=== PATIENT | male | born 1940 | race Caucasian/White ===

== ENCOUNTER 2017-09-19 21:15 | Observation (INO) | payer MEDICARE ==
[2017-09-19] MEDS ORDERED: Sodium Chloride 0.9% 1,000 ML IV SCH (21:30)
[2017-09-19] MEDS ORDERED: Ondansetron 4 MG/2 ML SDV IVPUSH ONE (22:13)
[2017-09-19] MEDS ORDERED: Morphine 2 MG/ML Syringe IVPUSH ONE (22:13)
[2017-09-19] MEDS ORDERED: Bacitracin Oint 1 GM U/D Packet TOP ONE (22:14)
[2017-09-19] MEDS ORDERED: Sodium Chloride 0.9% 100 ML IV SCH (22:30)
[2017-09-19] MEDS ORDERED: Iopamidol 612 MG/ML 150 ML Bottle IV SCH (22:30)
--- NOTE | 2017-09-19 22:54 | EDM.PDOC ---
ED HPI GENERAL MEDICAL PROBLEM - General Chief Complaint: Lower Extremity Injury/Pain Stated Complaint: FELL Time Seen by Provider: 09/19/17 21:29 Source of Information: Reports: Patient, Family History Limitations: Reports: No Limitations - History of Present Illness INITIAL COMMENTS - FREE TEXT/NARRATIVE: fall; this is a 77 year old male present to ER via POV. with patient. They report Jeremie was in the garage fixing something on the ceiling, he was on a ladder, accidently bumped the garage breakdown mill operator, which pushed him off the ladder. He fell about 7 feet onto cement. Denies any LOC, doesn't remember how he landed, but had pain on left side of body and cut to the right forearm. Walked into the house, once he sat down, unable to stand with out severe pain. While in ER, he had labs; CBC, CMP, UA; no acute finding. Imaging; CT cervical spine, abdomen-pelvis, left hips. negative except for non displaced fracture of inferior and superior ramus of pelvis; see CT reports for full radiology report. Given IV fluids, Morphine, Zofran; pain controlled. Did consult with Orthopedics, report this is not a surgical case, requires non weight bearing, pain controll. will admit Observation for pain control. and Mrs. Castanon agree with plan of care. Onset: Sudden Duration: Hour(s): Location: Reports: Pelvis, Upper Extremity, Left, Upper Extremity, Right, Lower Extremity, Left, Other (left side of body injuried) Quality: Reports: Pressure, Sharp Severity: Severe Improves with: Reports: Immobilization Worsens with: Reports: Movement Context: Reports: Trauma Associated Symptoms: Reports: Weakness, Other (difficulty walking) Left Hip Pain Score (Numeric/FACES): 9 - Related Data Allergies Allergy/AdvReac Type Severity Reaction Status Date / Time indomethacin [From Indocin] Allergy Dizziness Verified 04/16/16 21:51 indomethacin sodium Allergy Dizziness Verified 04/16/16 21:51 [From Indocin] Home Meds: Home Meds Aspirin [Halfprin] 81 mg PO DAILY 09/19/17 [History] Acetaminophen/HYDROcodone [[place] 325-5 MG] 1 tab PO Q4H PRN #30 tablet 09/21/17 [Rx] Docusate Sodium/Sennosides [Senna Plus] 1 tab PO BID #60 tablet 09/21/17 [Rx] Past Medical History HEENT History: Reports: Cataract, Impaired Vision Musculoskeletal History: Reports: Other (See Below) Other Musculoskeletal History: 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 - Infectious Disease History Infectious Disease History: Reports: Chicken Pox, Measles, Mumps - Past Surgical History GI Surgical History: Reports: Cholecystectomy, Colonoscopy Musculoskeletal Surgical History: Reports: Arthroscopic Procedure, Joint Replacement, Other (See Below) Other Musculoskeletal Surgeries/Procedures:: R ankle replacement, R hip replacement Social & Family History - Family History Family Medical History: Noncontributory - Tobacco Use Smoking Status *Q: Never Smoker Second Hand Smoke Exposure: No - Caffeine Use Caffeine Use: Reports: Tea - Alcohol Use Days Per Week of Alcohol Use: 0 - Recreational Drug Use Recreational Drug Use: No - Living Situation & Occupation Living situation: Reports: Occupation: Retired Review of Systems - Review of Systems Review Of Systems: See Below Constitutional: Reports: Other (trauma) Eyes: Reports: No Symptoms Ears: Reports: No Symptoms Nose: Reports: No Symptoms Mouth/Throat: Reports: No Symptoms Respiratory: Reports: No Symptoms Cardiovascular: Reports: No Symptoms GI/Abdominal: Reports: No Symptoms Genitourinary: Reports: No Symptoms Musculoskeletal: Reports: Neck Pain, Shoulder Pain, Arm Pain, Back Pain, Muscle Pain, Muscle Stiffness, Other (hip and pelvis pain) Skin: Reports: Other (laceration and skin tear to right forearm) Neurological: Reports: No Symptoms ED EXAM, GENERAL - Physical Exam Exam: See Below Exam Limited By: No Limitations General Appearance: Alert, Moderate Distress (with movement) Eye Exam: Bilateral Eye: EOMI, Normal Inspection, PERRL Ears: Normal External Exam, Normal Canal, Hearing Grossly Normal, Normal TMs Ear Exam: Bilateral Ear: Auricle Normal, Canal Normal, TM normal Throat/Mouth: Normal Inspection, Normal Lips, Normal Teeth, Normal Gums, Normal Oropharynx, Normal Voice, No Airway Compromise Head: Other (abrasion to scalp minor. no active bleeding.) Neck: Normal Inspection, Supple, Full Range of Motion, Other (posterior neck tenderness) Respiratory/Chest: No Respiratory Distress, Lungs Clear, Normal Breath Sounds, No Accessory Muscle Use, Chest Non-Tender Cardiovascular: Normal Peripheral Pulses, Regular Rate, Rhythm, No Edema, No Gallop, No JVD, No Murmur, No Rub GI/Abdominal: Normal Bowel Sounds, Soft, No Organomegaly, No Distention, No Abnormal Bruit, No Mass, Guarding, Rebound, Tender (Male) Exam: No Hernia, Normal Inspection, Normal Prostate Rectal (Males) Exam: Deferred Back Exam: Muscle Spasm Extremities: Leg Pain, Limited Range of Motion (unable to do straight leg lift and internal and external rotation of left leg.) Neurological: Alert, Oriented, CN II-XII Intact, Normal Cognition Psychiatric: Normal Affect, Normal Mood Skin Exam: Warm, Dry, Other (laceration to right forearm, skin tear present) Lymphatic: No Adenopathy ED TRAUMA EXTREMITY PROCEDURES - Laceration/Wound Repair Right Mid-Anterior Arm Lac/Wound Length In cm: 2.5 Appearance: Subcutaneous, Linear Distal NVT: Neuro & Vascular Intact, No Tendon Injury Local Anesthesia - Lidocaine (Xylocaine): 0.5% Plain, 1% Plain Local Anesthetic Volume: 2cc Skin Prep: Chlorhexidine (Hibiciens), Saline Exploration/Debridement/Repair: Wound Explored, Minimal Debridement Closed With: Sutures Suture Size: 4-0 # of Sutures: 5 Suture Type: Prolene Drain Placement: No Sterile Dressing Applied: Nurse Tetanus Status Addressed: Other (last Tdap 5 years ago) Complications: No Course - Vital Signs Last Recorded V/S: Last Vital Signs Temp 36.8 C 09/21/17 09:45 Pulse 81 09/21/17 09:45 Resp 16 09/21/17 09:45 BP 103/57 L 09/21/17 09:45 Pulse Ox 91 L 09/21/17 09:45 - Orders/Labs/Meds Labs: Laboratory Tests 09/19/17 09/19/17 09/19/17 Range/Units 21:52 21:52 21:52 WBC 9.1 (4.5-11.0) K/uL RBC 3.79 L (4.30-5.90) M/uL Hgb 12.1 D (12.0-15.0) g/dL Hct 36.5 L (40.0-54.0) % MCV 96 (80-98) fL MCH 32 H (27-31) pg MCHC 33 (32-36) % Plt Count 155 (150-400) K/uL Neut % (Auto) 69 H (36-66) % Lymph % (Auto) 17 L (24-44) % [place] % (Auto) 10 H (2-6) % Eos % (Auto) 3 (2-4) % Baso % (Auto) 0 (0-1) % PT 11.3 (9.5-12.0) sec INR 1.05 (0.80-1.20) Sodium 144 (140-148) mmol/L Potassium 4.2 (3.6-5.2) mmol/L Chloride 107 (100-108) mmol/L Carbon Dioxide 28 (21-32) mmol/L Anion Gap 9.0 (5.0-14.0) mmol/L BUN 22 H (7-18) mg/dL Creatinine 1.4 H (0.8-1.3) mg/dL Est Cr Clr Drug Dosing 42.75 mL/min Estimated GFR (MDRD) 49 L (>60) Glucose 95 (74-106) mg/dL Calcium 8.5 (8.5-10.1) mg/dL Total Bilirubin 1.3 H (0.2-1.0) mg/dL AST 28 (15-37) U/L ALT 25 (12-78) U/L Alkaline Phosphatase 63 (46-116) U/L Total Protein 6.2 L (6.4-8.2) g/dL Albumin 3.4 (3.4-5.0) g/dL Globulin 2.8 (2.3-3.5) g/dL Albumin/Globulin Ratio 1.2 (1.2-2.2) Meds: Medications Discontinued Medications Generic Name Dose Route Start Last Admin Trade Name Freq PRN Reason Stop Dose Admin Acetaminophen 650 mg 09/20/17 02:01 Tylenol PO Q4H PRN Pain (Mild 1-3)/fever Hydrocodone Bitart/Acetaminophen 1 - 2 tab 09/20/17 16:26 09/21/17 02:47 [place] 325-5 Mg PO 2 tab Q4H PRN Administration Pain Albuterol 2.5 mg 09/20/17 02:01 Proventil Neb Soln NEB Q4H PRN Shortness Of Breath/wheezing Albuterol/Ipratropium 3 ml 09/20/17 02:01 Duoneb 3.0-0.5 Mg/3 Ml NEB QID PRN Shortness Of Breath/wheezing Bacitracin 1 dose 09/19/17 22:14 09/19/17 22:22 Bacitracin Oint 1 Gm TOP 09/19/17 22:15 1 dose ONETIME ONE Administration Bisacodyl 5 mg 09/20/17 02:01 Dulcolax PO DAILY PRN Constipation Docusate Sodium 100 mg 09/20/17 02:01 Colace PO BID PRN Constipation Hydromorphone HCl 0 mg 09/20/17 02:01 09/20/17 02:30 Dilaudid Feed Handler 15 Mg In Ns 30 Ml IV 15 mg ASDIRECTED PRN Administration Pain Protocol Sodium Chloride 1,000 mls @ 500 mls/hr 09/19/17 21:30 09/19/17 22:07 Normal Saline IV 500 mls/hr ASDIRECTED [place] Administration Sodium Chloride 100 mls @ 3 mls/sec 09/19/17 22:30 09/19/17 22:52 Normal Saline IV 3 mls/sec ASDIRECTED [place] Administration Sodium Chloride 1,000 mls @ 125 mls/hr 09/20/17 00:30 09/20/17 09:43 Normal Saline IV 125 mls/hr ASDIRECTED [place] Administration Iopamidol 136 ml 09/19/17 22:30 09/19/17 22:52 Isovue-300 (61%) IV 136 ml . DIRECTED [place] Administration Lidocaine HCl 5 ml 09/19/17 22:13 09/19/17 22:23 Xylocaine-Mpf 1% INJECT 09/19/17 22:14 5 ml ONETIME ONE Administration Lorazepam 1 mg 09/20/17 02:01 Ativan IV Q6H PRN Nausea/Vomiting Morphine Sulfate 2 mg 09/19/17 22:13 09/19/17 22:23 Morphine IVPUSH 09/19/17 22:14 2 mg ONETIME ONE Administration Naloxone HCl 0.4 mg 09/20/17 02:01 Narcan IVPUSH Q2M PRN Respiratory Distress Ondansetron HCl 4 mg 09/19/17 22:13 09/19/17 22:23 Zofran IVPUSH 09/19/17 22:14 4 mg ONETIME ONE Administration Ondansetron HCl 4 mg 09/20/17 02:01 Zofran Odt PO Q6H PRN Nausea able to take PO Pneumococcal Polyvalent Vaccine 0.5 ml 09/21/17 12:00 09/21/17 11:38 Pneumovax 23 IM 09/21/17 12:01 0.5 ml .ONCE ONE Administration Senna/Docusate Sodium 1 tab 09/20/17 21:00 09/21/17 10:01 Senna Plus PO 1 tab BID [place] Administration Zolpidem Tartrate 5 mg 09/20/17 02:01 Ambien PO BEDTIME PRN Sleep - Re-Assessments/Exams Free Text/Narrative Re-Assessment/Exam: 09/19/17 22:39 IV fluids Normal Saline 1 liter IV Morphine 2 mg IV Zofran 4 mg Imaging -CT scan cervical spine, abdomen-pelvis , left hip consult with Orthopedics. fracture noted, reviewed with and Mrs. Castanon, will admit for further care and treatment. Departure - Departure Time of Disposition: 02:20 Disposition: Admitted As Inpatient 66 Condition: Good Clinical Impression: Inferior pubic ramus fracture Qualifiers: Encounter type: initial encounter Fracture of superior ramus of left pubis Qualifiers: Encounter type: initial encounter Fracture type: closed Qualified Code(s): S32.512A - Fracture of superior rim of left pubis, initial encounter for closed fracture Laceration of right forearm without complication Qualifiers: Encounter type: initial encounter Qualified Code(s): S51.811A - Laceration without foreign body of right forearm, initial encounter - Discharge Information
[2017-09-20] MEDS: Sodium Chloride 0.9% 1,000 ML IV SCH ×2 (00:30→09:43)
[2017-09-20] MEDS ORDERED: Zolpidem 5 MG Tab PO PRN (02:01)
[2017-09-20] MEDS ORDERED: Docusate Sodium 100 MG Cap PO PRN (02:01)
[2017-09-20] MEDS ORDERED: Bisacodyl 5 MG Tab PO PRN (02:01)
[2017-09-20] MEDS ORDERED: LORazepam 2 MG/ML MDV IV PRN (02:01)
[2017-09-20] MEDS ORDERED: Albuterol 0.083% 2.5 MG/3 ML Neb Soln NEB PRN (02:01)
[2017-09-20] MEDS ORDERED: HYDROmorphone/Normal Saline 15 MG/30 ML PCA IV PRN (02:01)
[2017-09-20] MEDS ORDERED: Acetaminophen 325 MG Tab PO PRN (02:01)
[2017-09-20] MEDS ORDERED: Ondansetron 4 MG Tab.DIS PO PRN (02:01)
[2017-09-20] MEDS ORDERED: Albuterol/Ipratropium 3.0-0.5 MG/3 ML Neb Soln NEB PRN (02:01)
[2017-09-20] MEDS ORDERED: Naloxone 0.4 MG/ML SDV IVPUSH PRN (02:01)
--- NOTE | 2017-09-20 02:15 | PCM.HP ---
H&P History of Present Illness - General Date of Service: 09/19/17 Admit Problem/Dx: Admission Diagnosis/Problem Admission Diagnosis/Problem Fracture of left inferior pubic ramus Source of Information: Patient, Family () History Limitations: Reports: No Limitations - History of Present Illness Initial Comments - Free Text/Narative: fall; this is a 77 year old male present to ER via POV. with patient. They report Jeremie was in the garage fixing something on the ceiling, he was on a ladder, accidently bumped the garage door clamper, which pushed him off the ladder. He fell about 7 feet onto cement. Denies any LOC, doesn't remember how he landed, but had pain on left side of body and cut to the right forearm. Walked into the house, once he sat down, unable to stand with out severe pain. While in ER, he had labs; CBC, CMP, UA; no acute finding. Imaging; CT cervical spine, abdomen-pelvis, left hips. negative except for non displaced fracture of inferior and superior ramus of pelvis; see CT reports for full radiology report. Given IV fluids, Morphine, Zofran; pain controlled. Did consult with Orthopedics, report this is not a surgical case, requires non weight bearing, pain controll. will admit Observation for pain control. and Mrs. Castanon agree with plan of care. Onset of Symptoms: Reports: Sudden Symptom Onset Date: 09/19/17 Symptom Onset Time: 16:00 Duration of Symptoms: Reports: Constant Location: Reports: Generalized, Radiates to (left groin and hip) Quality: Reports: Sharp Severity: Severe Improves with: Reports: Immobilization Worsens with: Reports: Movement Context: Reports: Other (fall at home) Associated Symptoms: Reports: No Other Symptoms Left Hip Pain Score (Numeric/FACES): 9 - Related Data Allergies/Adverse Reactions: Allergies Allergy/AdvReac Type Severity Reaction Status Date / Time indomethacin [From Indocin] Allergy Dizziness Verified 04/16/16 21:51 indomethacin sodium Allergy Dizziness Verified 04/16/16 21:51 [From Indocin] Home Medications: Home Meds Aspirin [Halfprin] 81 mg PO DAILY 09/19/17 [History] Past Medical History HEENT History: Reports: Cataract, Impaired Vision Musculoskeletal History: Reports: Other (See Below) Other Musculoskeletal History: 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 - Infectious Disease History Infectious Disease History: Reports: Chicken Pox, Measles, Mumps - Past Surgical History GI Surgical History: Reports: Cholecystectomy, Colonoscopy Musculoskeletal Surgical History: Reports: Arthroscopic Procedure, Joint Replacement, Other (See Below) Other Musculoskeletal Surgeries/Procedures:: R ankle replacement, R hip replacement Social & Family History - Family History Family Medical History: Noncontributory - Tobacco Use Smoking Status *Q: Never Smoker Second Hand Smoke Exposure: No - Caffeine Use Caffeine Use: Reports: Tea - Alcohol Use Days Per Week of Alcohol Use: 0 - Recreational Drug Use Recreational Drug Use: No - Living Situation & Occupation Living situation: Reports: H&P Review of Systems - Review of Systems: Review Of Systems: See Below General: Reports: Other (pain with movement.) HEENT: Reports: Other (left neck pain) Pulmonary: Reports: No Symptoms Cardiovascular: Reports: No Symptoms Gastrointestinal: Reports: No Symptoms Genitourinary: Reports: No Symptoms Musculoskeletal: Reports: Back Pain Skin: Reports: Other (laceration and skin tear to the right forearm.) Psychiatric: Reports: No Symptoms Neurological: Reports: No Symptoms Hematologic/Lymphatic: Reports: No Symptoms Immunologic: Reports: No Symptoms Exam - Exam Exam: See Below - Vital Signs Vital Signs: Last Vital Signs Temp 37 C 09/20/17 01:36 Pulse 88 09/20/17 01:36 Resp 16 09/20/17 01:36 BP 101/55 L 09/20/17 01:36 Pulse Ox 94 L 09/20/17 01:36 Weight: 90.718 kg - Exam General: Alert, Oriented, 4 HEENT: PERRLA, Hearing Intact, Mucosa Moist & [place], Nares Patent, Normal Nasal Septum, Posterior Pharynx Clear, Conjunctiva Clear, EOMI, EACs Clear, TMs Clear Neck: Supple Lungs: Clear to Auscultation, Normal Respiratory Effort Cardiovascular: Regular Rate, Regular Rhythm GI/Abdominal Exam: Normal Bowel Sounds, Soft, Non-Tender, No Organomegaly, No Distention, No Abnormal Bruit, No Mass, Pelvis Stable, Other (pain epigastric region of abdomen.) Back Exam: Normal Inspection Extremities: Normal Inspection, Normal Range of Motion, Non-Tender, No Pedal Edema, Normal Capillary Refill Skin: Wound Neurological: Reflexes Equal Bilateral, Normal Speech, Sensation Intact Neuro Extensive - Mental Status: Alert, Oriented x3, Normal Mood/Affect, Normal Cognition Neuro Extensive - Motor, Sensory, Reflexes: Other (left leg increased pain and limited range of motion to left legs.) Psychiatric: Alert, Normal Affect, Normal Mood - Patient Data Result Diagrams: 09/19/17 21:52 09/19/17 21:52 *Q Meaningful Use (ADM) - VTE *Q VTE Criteria *Q: - Stroke *Q Stroke Criteria *Q: - AMI *Q AMI Criteria *Q: - Problem List (1) Fracture of superior ramus of left pubis SNOMED Code(s): 278418498 ICD Code: S32.512A - FRACTURE OF SUPERIOR RIM OF LEFT PUBIS, INIT FOR CLOS FX Status: Acute Priority: High Current Visit: Yes Qualifiers: Encounter type: initial encounter Fracture type: closed Qualified Code(s) : S32.512A - Fracture of superior rim of left pubis, initial encounter for closed fracture (2) Inferior pubic ramus fracture SNOMED Code(s): 628075829 ICD Code: S32.599A - OTH FRACTURE OF UNSP PUBIS, INIT ENCNTR FOR CLOSED FRACTURE Status: Acute Priority: High Current Visit: Yes Qualifiers: Encounter type: initial encounter (3) Laceration of right forearm without complication SNOMED Code(s): 497395086 ICD Code: S51.811A - LACERATION W/O FOREIGN BODY OF RIGHT FOREARM, INIT ENCNTR Status: Acute Priority: High Current Visit: Yes Qualifiers: Encounter type: initial encounter Qualified Code(s): S51.811A - Laceration without foreign body of right forearm, initial encounter Problem List Initiated/Reviewed/Updated: Yes Orders Last 24hrs: Active Orders 24 hr Category Date Time Status Patient Status [ADT] Routine ADT 09/20/17 02:01 Active Communication Order [RC] STAT Care 09/20/17 02:01 Active Intake and Output [RC] QSHIFT Care 09/20/17 02:01 Active Notify Provider Vital Signs [RC] ASDIRECTED Care 09/20/17 02:01 Active Notify Provider [RC] PRN Care 09/20/17 02:01 Active Oxygen Therapy [RC] PRN Care 09/20/17 02:01 Active BANK MANAGER Record [RC] PER UNIT ROUTINE Care 09/20/17 02:01 Active Pulse Oximetry [RC] CONTINUOUS Care 09/20/17 02:01 Active Pulse Oximetry [RC] CONTINUOUS Care 09/20/17 02:01 Active RT Aerosol Therapy [RC] ASDIRECTED Care 09/20/17 02:01 Active Up With Assistance [RC] ASDIRECTED Care 09/20/17 02:01 Active VTE/DVT Education [RC] Per Unit Routine Care 09/20/17 02:01 Active Vital Signs [RC] Q4H Care 09/20/17 02:01 Active OT Evaluation and Treatment [CONS] Routine Cons 09/20/17 02:01 Active PT Evaluation and Treatment [CONS] Routine Cons 09/20/17 02:01 Active Regular Diet [DIET] Diet 09/20/17 Breakfast Active BASIC METABOLIC PANEL,BMP [CHEM] AM Lab 09/20/17 05:11 Ordered CBC WITH AUTO DIFF [HEME] AM Lab 09/20/17 05:11 Ordered Acetaminophen [Tylenol] Med 09/20/17 02:01 Ordered 650 mg PO Q4H PRN Albuterol [Proventil Neb Soln] Med 09/20/17 02:01 Ordered 2.5 mg NEB Q4H PRN Albuterol/Ipratropium [DuoNeb 3.0-0.5 MG/3 ML] Med 09/20/17 02:01 Ordered 3 ml NEB QID PRN Bisacodyl [Dulcolax] Med 09/20/17 02:01 Ordered 5 mg PO DAILY PRN Docusate Sodium [Colace] Med 09/20/17 02:01 Ordered 100 mg PO BID PRN HYDROmorphone/Normal Saline [Dilaudid BANK MANAGER 15 MG in NS Med 09/20/17 02:01 Ordered 30 ML] See Protocol IV ASDIRECTED PRN LORazepam [Ativan] Med 09/20/17 02:01 Ordered 1 mg IV Q6H PRN Naloxone [Narcan] Med 09/20/17 02:01 Ordered 0.4 mg IVPUSH Q2M PRN Ondansetron [Zofran ODT] Med 09/20/17 02:01 Ordered 4 mg PO Q6H PRN Zolpidem [Ambien] Med 09/20/17 02:01 Ordered 5 mg PO BEDTIME PRN Medication Discontinuation Instructions [OM.PC] Stat Oth 09/20/17 02:01 Ordered Sequential Compression Device [OM.PC] Per Unit Routine Oth 09/20/17 02:01 Ordered Resuscitation Status Routine Resus Stat 09/20/17 00:43 Ordered Medication Orders Acetaminophen (Tylenol) 650 mg PO Q4H PRN PRN Reason: Pain (Mild 1-3)/fever Albuterol (Proventil Neb Soln) 2.5 mg NEB Q4H PRN PRN Reason: Shortness Of Breath/wheezing Albuterol/Ipratropium (Duoneb 3.0-0.5 Mg/3 Ml) 3 ml NEB QID PRN PRN Reason: Shortness Of Breath/wheezing Bisacodyl (Dulcolax) 5 mg PO DAILY PRN PRN Reason: Constipation Docusate Sodium (Colace) 100 mg PO BID PRN PRN Reason: Constipation Hydromorphone HCl (Dilaudid Panel Flow Machine Operator 15 Mg In Ns 30 Ml) 0 mg IV ASDIRECTED PRN; Protocol PRN Reason: Pain Sodium Chloride (Normal Saline) 1,000 mls @ 125 mls/hr IV ASDIRECTED [place] Last Admin: 09/20/17 00:30 Dose: 125 mls/hr Lorazepam (Ativan) 1 mg IV Q6H PRN PRN Reason: Nausea/Vomiting Naloxone HCl (Narcan) 0.4 mg IVPUSH Q2M PRN PRN Reason: Respiratory Distress Ondansetron HCl (Zofran Odt) 4 mg PO Q6H PRN PRN Reason: Nausea able to take PO Zolpidem Tartrate (Ambien) 5 mg PO BEDTIME PRN PRN Reason: Sleep Assessment/Plan Comment:: ASSESSMENT AND PLAN fall; this is a 77 year old male present to ER via POV. with patient. They report Jeremie was in the garage fixing something on the ceiling, he was on a ladder, accidentally bumped the garage door clamper, garage door opened which pushed him off the ladder. He fell about 7 feet onto cement. Denies any LOC, doesn't remember how he landed, but had pain on left side of body and cut to the right forearm. Walked into the house, once he sat down, unable to stand with out severe pain. While in ER, he had labs; CBC, CMP, UA; no acute finding. Imaging; xray of left shoulder, left knee; negative for acute bony injury. CT cervical spine, abdomen- pelvis, left hip. negative except for non displaced fracture of inferior and superior ramus of pelvis; see CT reports for full radiology report. Given IV fluids, Morphine, Zofran; pain controlled. Did consult with Orthopedics, report this is not a surgical case, requires non weight bearing, pain controll. will admit Observation for pain control. and Mrs. Castanon agree with admission to hospital. Plan: Pelvis Fracture; non displaced left inferior pubic rfamus fractue and a possible very subtel non-diplace fracture of the left superior pubic ramus -Admit to [address] [place] [address] Observation for further monitoring -BANK MANAGER Dilaudid. see protocol -IV fluids for rehydration NS at 125 mL per hour -Advise to notify nurses of any chest pain or other symptoms -And a.m. labs: CBC, BMP laceration repair Right forearm -bandage change daily -apply bactracin ointment to laceration and skin tear of right forearm -sutures out in 7 to 10 days -monitor for signs of infection. Maintenance issues -Orders home meds: non noted -Nutrition: Regular diet -[place] catheter not indicated at this time -DVT: SCD -GI Prophylaxis; Protonix 40mg daily -referral to PT and OT for strengthen and discharge planning. CODE STATUS: Full Admission status: Admit to Observation -I expect this patient to stay less than 24 hours, not to exceed 96 hours for evaluation and management of this problem. Disposition; home Primary care provider: Dr. Ascencio Hospitalist:
--- NOTE | 2017-09-20 08:25 | CR ---
Knee 3V Lt HISTORY: pain lt knee. fall 7ft to cement floor. FINDINGS: There is prominent narrowing of the medial compartment left knee. Meniscal calcification is noted. Moderate to severe narrowing left knee is also seen along with meniscal calcification and mod erate medial and lateral aspects. Posterior osteophytes are noted. There are also prominent degenerat danisha changes patellofemoral joint with superior and inferior patellar osteophytes. Bony structures brent ear mildly osteopenic. Sclerotic changes consistent with old healed bone infarct are noted in the dis daniel abscess left femur. 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 Generalized osteope jose. No acute fracture can be identified. 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
--- NOTE | 2017-09-20 08:26 | CR ---
Shoulder Comp Lt HISTORY: fall 7ft cement floor. pain anterior shoulder left FINDINGS: No acute fracture or dislocation is identified. Bony architecture and joint spaces are preserved. T here are very mild hypertrophic changes at the AC joint. Soft tissues are unremarkable. IMPRESSION: Mild degenerative changes. No acute left shoulder abnormality identified.
[2017-09-20] MEDS: Acetaminophen/HYDROcodone 325-5 MG Tab PO PRN (17:07)
--- NOTE | 2017-09-20 18:18 | PCM.PN ---
- General Info Date of Service: 09/20/17 Subjective Update: This patient is a 77-year-old gentleman who fell last night and was brought into the emergency department for evaluation. CT scan of the pelvis documents a left inferior pubic rami fracture and possible left superior rami fracture. He reports that his pain control is been adequate. Vital signs have been stable and he has remained afebrile Functional Status: Reports: Pain Controlled, Tolerating Diet - Review of Systems General: Denies: Fever, Weakness, Chills Pulmonary: Reports: No Symptoms Cardiovascular: Reports: No Symptoms Gastrointestinal: Reports: No Symptoms Musculoskeletal: Reports: Other (Pelvic and left hip pain) - Patient Data Vitals - Most Recent: Last Vital Signs Temp 99.7 F 09/20/17 15:50 Pulse 70 09/20/17 15:50 Resp 17 09/20/17 15:50 BP 100/49 L 09/20/17 15:50 Pulse Ox 95 09/20/17 15:50 Weight - Most Recent: 209 lb 14.081 oz I&O - Last 24 Hours: Intake & Output 09/20/17 09/20/17 09/20/17 06:59 14:59 22:59 Intake Total 586 840 Output Total 400 Balance 586 440 Lab Results Last 24 Hours: Laboratory Results - last 24 hr 09/20/17 09/20/17 Range/Units 05:15 05:15 WBC 8.1 (4.5-11.0) K/uL RBC 3.56 L (4.30-5.90) M/uL Hgb 11.2 L (12.0-15.0) g/dL Hct 34.7 L (40.0-54.0) % MCV 98 (80-98) fL MCH 32 H (27-31) pg MCHC 32 (32-36) % Plt Count 146 L (150-400) K/uL Neut % (Auto) 69 H (36-66) % Lymph % (Auto) 18 L (24-44) % [place] % (Auto) 8 H (2-6) % Eos % (Auto) 5 H (2-4) % Baso % (Auto) 0 (0-1) % Sodium 143 (140-148) mmol/L Potassium 4.1 (3.6-5.2) mmol/L Chloride 109 H (100-108) mmol/L Carbon Dioxide 27 (21-32) mmol/L Anion Gap 11.1 (5.0-14.0) mmol/L BUN 19 H (7-18) mg/dL Creatinine 1.1 (0.8-1.3) mg/dL Est Cr Clr Drug Dosing 54.41 mL/min Estimated GFR (MDRD) > 60 (>60) Glucose 99 (74-106) mg/dL Calcium 8.0 L (8.5-10.1) mg/dL Med Orders - Current: Current Medications Acetaminophen (Tylenol) 650 mg PO Q4H PRN PRN Reason: Pain (Mild 1-3)/fever Hydrocodone Bitart/Acetaminophen ([place] 325-5 Mg) 1 - 2 tab PO Q4H PRN PRN Reason: Pain Last Admin: 09/20/17 17:07 Dose: 2 tab Albuterol (Proventil Neb Soln) 2.5 mg NEB Q4H PRN PRN Reason: Shortness Of Breath/wheezing Albuterol/Ipratropium (Duoneb 3.0-0.5 Mg/3 Ml) 3 ml NEB QID PRN PRN Reason: Shortness Of Breath/wheezing Bisacodyl (Dulcolax) 5 mg PO DAILY PRN PRN Reason: Constipation Docusate Sodium (Colace) 100 mg PO BID PRN PRN Reason: Constipation Lorazepam (Ativan) 1 mg IV Q6H PRN PRN Reason: Nausea/Vomiting Naloxone HCl (Narcan) 0.4 mg IVPUSH Q2M PRN PRN Reason: Respiratory Distress Ondansetron HCl (Zofran Odt) 4 mg PO Q6H PRN PRN Reason: Nausea able to take PO Senna/Docusate Sodium (Senna Plus) 1 tab PO BID [place] Zolpidem Tartrate (Ambien) 5 mg PO BEDTIME PRN PRN Reason: Sleep Discontinued Medications Bacitracin (Bacitracin Oint 1 Gm) 1 dose TOP ONETIME ONE Stop: 09/19/17 22:15 Last Admin: 09/19/17 22:22 Dose: 1 dose Hydromorphone HCl (Dilaudid Social Services Technician 15 Mg In Ns 30 Ml) 0 mg IV ASDIRECTED PRN; Protocol PRN Reason: Pain Last Admin: 09/20/17 02:30 Dose: 15 mg Sodium Chloride (Normal Saline) 1,000 mls @ 500 mls/hr IV ASDIRECTED [facility] Last Admin: 09/19/17 22:07 Dose: 500 mls/hr Sodium Chloride (Normal Saline) 100 mls @ 3 mls/sec IV ASDIRECTED [facility] Last Admin: 09/19/17 22:52 Dose: 3 mls/sec Sodium Chloride (Normal Saline) 1,000 mls @ 125 mls/hr IV ASDIRECTED [facility] Last Admin: 09/20/17 09:43 Dose: 125 mls/hr Iopamidol (Isovue-300 (61%)) 136 ml IV . DIRECTED [facility] Last Admin: 09/19/17 22:52 Dose: 136 ml Lidocaine HCl (Xylocaine-Mpf 1%) 5 ml INJECT ONETIME ONE Stop: 09/19/17 22:14 Last Admin: 09/19/17 22:23 Dose: 5 ml Morphine Sulfate (Morphine) 2 mg IVPUSH ONETIME ONE Stop: 09/19/17 22:14 Last Admin: 09/19/17 22:23 Dose: 2 mg Ondansetron HCl (Zofran) 4 mg IVPUSH ONETIME ONE Stop: 09/19/17 22:14 Last Admin: 09/19/17 22:23 Dose: 4 mg - Exam Quality Assessment: DVT Prophylaxis General: Alert, Oriented, Cooperative, Mild Distress Lungs: Clear to Auscultation, Normal Respiratory Effort Cardiovascular: Regular Rate, Regular Rhythm, No Murmurs GI/Abdominal Exam: Normal Bowel Sounds, Soft, Non-Tender, No Organomegaly, No Distention Extremities: Normal Capillary Refill, Pedal Edema Skin: Warm, Dry, Intact - Problem List Review Problem List Initiated/Reviewed/Updated: Yes - My Orders Last 24 Hours: My Active Orders 09/20/17 16:23 Convert IV to Saline Lock [OM.PC] Routine 09/20/17 16:26 Acetaminophen/HYDROcodone [[place] 325-5 MG] 1 - 2 tab PO Q4H PRN 09/20/17 21:00 Docusate Sodium/Sennosides [Senna Plus] 1 tab PO BID 09/21/17 09:00 Consult to Physician [CONS] Routine - Plan Plan:: ASSESSMENT AND PLAN Pelvis Fracture; non displaced left inferior pubic ramus fractue and a possible non-diplace fracture of the left superior pubic ramus -Discontinue ENVIRONMENTAL EDUCATOR -Saline lock IV -Continue physical therapy -Hydrocodone with Tylenol as needed for pain -Orthopedic consult in a.m. for ongoing recommendations concerning management and follow-up Laceration repair Right forearm -bandage change daily -apply bactracin ointment to laceration and skin tear of right forearm -sutures out in 7 to 10 days -monitor for signs of infection. Maintenance issues -Orders home meds: non noted -Nutrition: Regular diet -[place] catheter not indicated at this time -DVT: SCD -GI Prophylaxis; Protonix 40mg daily -referral to PT and OT for strengthen and discharge planning. CODE STATUS: Full Admission status: Admit to Observation -I expect this patient to stay less than 24 hours, not to exceed 96 hours for evaluation and management of this problem. Disposition; anticipate discharge to home in a.m. with home physical therapy and occupational therapy Primary care provider: Dr. Ascencio Hospitalist:
[2017-09-21] MEDS: Acetaminophen/HYDROcodone 325-5 MG Tab PO PRN (02:47)
--- NOTE | 2017-09-21 09:44 | PCM.CONS ---
H&P History of Present Illness - General Date of Service: 09/21/17 Admit Problem/Dx: Admission Diagnosis/Problem Admission Diagnosis/Problem Fracture of left inferior pubic ramus Patient stated that he had a recent fall that caused him to come to the ER where he was evaluated to have a left inferior pubic ramus fracture. He notes that he has not had any other issues at this time. 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 - Infectious Disease History Infectious Disease History: Reports: Chicken Pox, Measles, Mumps - Past Surgical History GI Surgical History: Reports: Cholecystectomy, Colonoscopy Musculoskeletal Surgical History: Reports: Arthroscopic Procedure, Joint Replacement, Other (See Below) Other Musculoskeletal Surgeries/Procedures:: R ankle replacement, R hip replacement Social & Family History - Family History Family Medical History: Noncontributory - Tobacco Use Smoking Status *Q: Never Smoker Second Hand Smoke Exposure: No - Caffeine Use Caffeine Use: Reports: Tea - Alcohol Use Days Per Week of Alcohol Use: 0 - Recreational Drug Use Recreational Drug Use: No - Living Situation & Occupation Living situation: Reports: H&P Review of Systems - Review of Systems: Review Of Systems: See Below General: Reports: No Symptoms Musculoskeletal: Reports: Joint Pain (left hip pain) Skin: Reports: No Symptoms Neurological: Reports: No Symptoms Exam - Exam Exam: See Below - Vital Signs Vital Signs: Last Vital Signs Temp 36.8 C 09/21/17 08:00 Pulse 76 09/21/17 08:00 Resp 16 09/21/17 08:00 BP 110/66 09/21/17 08:00 Pulse Ox 95 09/21/17 08:00 Weight: 209 lb 14.081 oz - Exam General: Alert, Oriented Extremities: Normal Inspection, Normal Range of Motion, Non-Tender, Normal Capillary Refill Peripheral Pulses: 2+: Dorsalis Pedis (L), Dorsalis Pedis (R) Skin: Warm, Dry, Intact Neurological: Cranial Nerves Intact Neuro Extensive - Mental Status: Alert, Oriented x3 Psychiatric: Alert, Normal Affect - Patient Data Result Diagrams: 09/20/17 05:15 09/20/17 05:15 Consult PN Assessment/Plan Procedures: Procedures ASSAY OF SERUM POTASSIUM (09/12/13) BLOOD CULTURE FOR BACTERIA (04/16/16) COMPLETE CBC AUTOMATED (09/12/13) COMPLETE CBC W/AUTO DIFF WBC (04/16/16) CT HEAD/BRAIN W/O DYE (09/23/15) DIAGNOSTIC COLONOSCOPY (08/08/13) EMERGENCY DEPT VISIT (04/16/16) EXTRACRANIAL BILAT STUDY (09/23/15) MANUAL THERAPY 1/> REGIONS (08/05/17) MRI BRAIN STEM W/O & W/DYE (10/07/15) MRI JOINT UPR EXTREM W/O DYE (07/01/17) PRP I/CARLY INIT REDUC >5 YR (09/12/13) PT EVAL LOW COMPLEX 20 MIN (07/20/17) PT EVALUATION (04/20/16) ROUTINE VENIPUNCTURE (04/16/16) THERAPEUTIC EXERCISES (08/05/17) ULTRASOUND THERAPY (06/19/15) X-RAY EXAM OF SHOULDER (04/12/16) X-RAY EYE FOR FOREIGN BODY (10/07/15) Problem List Initiated/Reviewed/Updated: Yes Plan: At this time the patient is doing well. He is ambulating with minimal pain. He notes that he has a slight twinge on the left hip when standing up. He will continue to be weight bearing as tolerated. He will follow up with his PCP. He will continue with PT/OT.
[2017-09-21 09:48] VITALS: BP 103/57
[2017-09-21] MEDS ORDERED: Pneumococcal Polyvalent-23 Vaccine 0.5 ML SDV IM ONE (12:00)
--- NOTE | 2017-09-21 12:06 | PCM.DCSUM1 ---
Discharge Summary - Hospital Course Brief History: Mr. Castanon is a 77-year-old gentleman who was admitted to observation status through the emergency department after he fell off of a ladder in his garage which resulted in pelvic fractures. - Discharge Data Discharge Date: 09/21/17 Discharge Disposition: Home, W Home Health Agency 06 Condition: Fair - Discharge Diagnosis/Problem(s) (1) Inferior pubic ramus fracture SNOMED Code(s): 614957073 ICD Code: S32.599A - OTH FRACTURE OF UNSP PUBIS, INIT ENCNTR FOR CLOSED FRACTURE Status: Acute Priority: High Current Visit: Yes Qualifiers: Encounter type: initial encounter (2) Fracture of superior ramus of left pubis SNOMED Code(s): 972323072 ICD Code: S32.512A - FRACTURE OF SUPERIOR RIM OF LEFT PUBIS, INIT FOR CLOS FX Status: Acute Priority: High Current Visit: Yes Qualifiers: Encounter type: initial encounter Fracture type: closed Qualified Code(s) : S32.512A - Fracture of superior rim of left pubis, initial encounter for closed fracture (3) Laceration of right forearm without complication SNOMED Code(s): 169808439 ICD Code: S51.811A - LACERATION W/O FOREIGN BODY OF RIGHT FOREARM, INIT ENCNTR Status: Acute Priority: High Current Visit: Yes Qualifiers: Encounter type: initial encounter Qualified Code(s): S51.811A - Laceration without foreign body of right forearm, initial encounter - Patient Summary/Data Consults: Consultations 09/20/17 02:01 OT Evaluation and Treatment [CONS] Routine Please Evaluate and Treat. OT Reason for Consult: Discharge Planning Special Instructions: non wt bearing. This query below is only for informational purposes and is not editable. PT Evaluation and Treatment [CONS] Routine Please Evaluate and Treat. PT Reason for Consult: Ambulation Special Instructions: new fracture of inferior and superior pubic ramus fracture, need to be non wt bearing. This query below is only for informational purposes and is not editable. 09/21/17 09:00 Consult to Physician [CONS] Routine Consulting Provider: Naldo Clifford Courtesy Call Completed to Consulting Physician: Yes Reason for Consult: Pelvic fracture Person Notified: JW Hospital Course: Mr. Castanon fell off of a ladder and experienced significant pain in his pelvis as well as left hip. He was brought into the emergency department for further evaluation, CT scan documented fracture of the left inferior pubic ramus and probable fracture of the left superior pubic ramus. CT scan of the head as well as neck were unremarkable for fractures. He experienced pain in his left shoulder and x-rays of that area were negative for fracture. CT scan showed no evidence of fracture of the left hip. He did have a laceration of his left forearm that was sutured in the emergency department. He was admitted to the hospital for pain control. Initially received IV fluids but the resource discontinued on the first day and by the time of discharge he was stable and doing well on oral pain medication. Prior to discharge was seen and evaluated by the orthopedic service they recommended ongoing follow-up with primary care and weightbearing as tolerated. He was seen and evaluated by physical therapy during hospital stay. Home care will be arranged for him after discharge with home physical therapy and occupational therapy. Activity will be as tolerated and he will resume his usual diet. Follow-up appointment will be made with his primary care provider in one week, sutures the left forearm can be removed at that time. - Patient Instructions Diet: Usual Diet as Tolerated Activity: As Tolerated Other/Special Instructions: Please schedule follow-up appointment with primary care provider within one week. Please arrange for home care with home physical therapy and occupational therapy after discharge. - Discharge Plan Prescriptions/Med Rec: Acetaminophen/HYDROcodone [[place] 325-5 MG] 1 tab PO Q4H PRN #30 tablet PRN Reason: Pain Docusate Sodium/Sennosides [Senna Plus] 1 tab PO BID #60 tablet Home Medications: Home Meds Aspirin [Halfprin] 81 mg PO DAILY 09/19/17 [History] Acetaminophen/HYDROcodone [[place] 325-5 MG] 1 tab PO Q4H PRN #30 tablet 09/21/17 [Rx] Docusate Sodium/Sennosides [Senna Plus] 1 tab PO BID #60 tablet 09/21/17 [Rx] Patient Handouts: Simple Pelvic Fracture, Adult, Sutured Wound Care, Easy-to- Read Referrals: Jesus Payan PA [Primary Care Provider] - 09/26/17 2:30 pm (Jesus Payan follow up appt. Follow up pelvic fracture and also need suture removal from arm. ) - Patient Data Vitals - Most Recent: Last Vital Signs Temp 98.2 F 09/21/17 09:45 Pulse 81 09/21/17 09:45 Resp 16 09/21/17 09:45 BP 103/57 L 09/21/17 09:45 Pulse Ox 91 L 09/21/17 09:45 Weight - Most Recent: 209 lb 14.081 oz I&O - Last 24 hours: Intake & Output 09/20/17 09/21/17 09/21/17 22:59 06:59 14:59 Output Total 400 425 Balance -400 -425 Med Orders - Current: Current Medications Acetaminophen (Tylenol) 650 mg PO Q4H PRN PRN Reason: Pain (Mild 1-3)/fever Hydrocodone Bitart/Acetaminophen ([place] 325-5 Mg) 1 - 2 tab PO Q4H PRN PRN Reason: Pain Last Admin: 09/21/17 02:47 Dose: 2 tab Albuterol (Proventil Neb Soln) 2.5 mg NEB Q4H PRN PRN Reason: Shortness Of Breath/wheezing Albuterol/Ipratropium (Duoneb 3.0-0.5 Mg/3 Ml) 3 ml NEB QID PRN PRN Reason: Shortness Of Breath/wheezing Bisacodyl (Dulcolax) 5 mg PO DAILY PRN PRN Reason: Constipation Docusate Sodium (Colace) 100 mg PO BID PRN PRN Reason: Constipation Lorazepam (Ativan) 1 mg IV Q6H PRN PRN Reason: Nausea/Vomiting Naloxone HCl (Narcan) 0.4 mg IVPUSH Q2M PRN PRN Reason: Respiratory Distress Ondansetron HCl (Zofran Odt) 4 mg PO Q6H PRN PRN Reason: Nausea able to take PO Senna/Docusate Sodium (Senna Plus) 1 tab PO BID [place] Last Admin: 09/21/17 10:01 Dose: 1 tab Zolpidem Tartrate (Ambien) 5 mg PO BEDTIME PRN PRN Reason: Sleep Discontinued Medications Bacitracin (Bacitracin Oint 1 Gm) 1 dose TOP ONETIME ONE Stop: 09/19/17 22:15 Last Admin: 09/19/17 22:22 Dose: 1 dose Hydromorphone HCl (Dilaudid Ems Helicopter Pilot 15 Mg In Ns 30 Ml) 0 mg IV ASDIRECTED PRN; Protocol PRN Reason: Pain Last Admin: 09/20/17 02:30 Dose: 15 mg Sodium Chloride (Normal Saline) 1,000 mls @ 500 mls/hr IV ASDIRECTED [facility] Last Admin: 09/19/17 22:07 Dose: 500 mls/hr Sodium Chloride (Normal Saline) 100 mls @ 3 mls/sec IV ASDIRECTED [place] Last Admin: 09/19/17 22:52 Dose: 3 mls/sec Sodium Chloride (Normal Saline) 1,000 mls @ 125 mls/hr IV ASDIRECTED [place] Last Admin: 09/20/17 09:43 Dose: 125 mls/hr Iopamidol (Isovue-300 (61%)) 136 ml IV . DIRECTED [facility] Last Admin: 09/19/17 22:52 Dose: 136 ml Lidocaine HCl (Xylocaine-Mpf 1%) 5 ml INJECT ONETIME ONE Stop: 09/19/17 22:14 Last Admin: 09/19/17 22:23 Dose: 5 ml Morphine Sulfate (Morphine) 2 mg IVPUSH ONETIME ONE Stop: 09/19/17 22:14 Last Admin: 09/19/17 22:23 Dose: 2 mg Ondansetron HCl (Zofran) 4 mg IVPUSH ONETIME ONE Stop: 09/19/17 22:14 Last Admin: 09/19/17 22:23 Dose: 4 mg Pneumococcal Polyvalent Vaccine (Pneumovax 23) 0.5 ml IM .ONCE ONE Stop: 09/21/17 12:01 Last Admin: 09/21/17 11:38 Dose: 0.5 ml *Q Meaningful Use (DIS) - VTE *Q VTE Criteria *Q: - Stroke *Q Stroke Criteria *Q: - AMI *Q AMI Criteria *Q:
--- NOTE | 2017-09-26 19:30 | EDM.PDOC ---
ED HPI GENERAL MEDICAL PROBLEM - General Chief Complaint: Lower Extremity Injury/Pain Stated Complaint: FELL Time Seen by Provider: 09/19/17 21:29 Source of Information: Reports: Patient - History of Present Illness INITIAL COMMENTS - FREE TEXT/NARRATIVE: fall; this is a 77 year old male present to ER via POV. with patient. They report Jeremie was in the garage fixing something on the ceiling, he was on a ladder, accidently bumped the garage indoor plant technician, which pushed him off the ladder. He fell about 7 feet onto cement. Denies any LOC, doesn't remember how he landed, but had pain on left side of body and cut to the right forearm. Walked into the house, once he sat down, unable to stand with out severe pain. Onset: Sudden Onset Date: 09/19/17 Onset Time: 16:00 Duration: Constant Location: Reports: Generalized, Radiates to (left groin and hip) Quality: Reports: Sharp Severity: Severe Improves with: Reports: Immobilization Worsens with: Reports: Movement Associated Symptoms: Reports: No Other Symptoms Left Hip Pain Score (Numeric/FACES): 4 - Related Data Allergies Allergy/AdvReac Type Severity Reaction Status Date / Time indomethacin [From Indocin] Allergy Dizziness Verified 04/16/16 21:51 indomethacin sodium Allergy Dizziness Verified 04/16/16 21:51 [From Indocin] Home Meds: Home Meds Aspirin [Halfprin] 81 mg PO DAILY 09/19/17 [History] Acetaminophen/HYDROcodone [[place] 325-5 MG] 1 tab PO Q4H PRN #30 tablet 09/21/17 [Rx] Docusate Sodium/Sennosides [Senna Plus] 1 tab PO BID #60 tablet 09/21/17 [Rx] Past Medical History HEENT History: Reports: Cataract, Impaired Vision Musculoskeletal History: Reports: Other (See Below) Other Musculoskeletal History: 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 - Infectious Disease History Infectious Disease History: Reports: Chicken Pox, Measles, Mumps - Past Surgical History GI Surgical History: Reports: Cholecystectomy, Colonoscopy Musculoskeletal Surgical History: Reports: Arthroscopic Procedure, Joint Replacement, Other (See Below) Other Musculoskeletal Surgeries/Procedures:: R ankle replacement, R hip replacement Social & Family History - Family History Family Medical History: Noncontributory - Tobacco Use Smoking Status *Q: Never Smoker Second Hand Smoke Exposure: No - Caffeine Use Caffeine Use: Reports: Tea - Alcohol Use Days Per Week of Alcohol Use: 0 - Recreational Drug Use Recreational Drug Use: No - Living Situation & Occupation Living situation: Reports: ED ROS GENERAL - Review of Systems Review Of Systems: See Below Constitutional: Reports: Other (pain in hips, shoulder; muscle pain) HEENT: Reports: No Symptoms Respiratory: Reports: No Symptoms Cardiovascular: Reports: No Symptoms Endocrine: Reports: No Symptoms GI/Abdominal: Reports: No Symptoms : Reports: No Symptoms Musculoskeletal: Reports: Shoulder Pain (left shoulder), Arm Pain (left arm.), Back Pain (low back to left hip and groin), Leg Pain, Joint Pain (left hip/ groin pain), Muscle Pain (left side of body) Skin: Reports: Wound (right forearm), Other (laceration to right forearm, bruising and skin tear.) Neurological: Reports: No Symptoms Psychiatric: Reports: No Symptoms Hematologic/Lymphatic: Reports: No Symptoms Immunologic: Reports: No Symptoms ED EXAM, GENERAL - Physical Exam Exam: See Below Exam Limited By: No Limitations General Appearance: Alert, WD/WN, Moderate Distress (pain in left hip, shoulder , chest) Eye Exam: Bilateral Eye: EOMI, Normal Inspection, PERRL Ears: Normal External Exam, Normal Canal, Hearing Grossly Normal, Normal TMs Ear Exam: Bilateral Ear: Auricle Normal, Canal Normal, TM normal Nose: Normal Inspection, Normal Mucosa, No Blood Throat/Mouth: Normal Inspection, Normal Lips, Normal Teeth, Normal Gums, Normal Oropharynx, Normal Voice, No Airway Compromise Head: Atraumatic, Normocephalic Neck: Normal Inspection, Supple, Non-Tender, Full Range of Motion Respiratory/Chest: No Respiratory Distress, Lungs Clear, Normal Breath Sounds, No Accessory Muscle Use, Chest Non-Tender Cardiovascular: Normal Peripheral Pulses, Regular Rate, Rhythm, No Edema, No Gallop, No JVD, No Murmur, No Rub Peripheral Pulses: 2+: Dorsalis Pedis (L), Dorsalis Pedis (R) GI/Abdominal: Normal Bowel Sounds, Soft, No Organomegaly, No Distention, Other ( acute pain with palpation of left lower abdomen into groin) (Male) Exam: No Hernia Rectal (Males) Exam: Deferred Back Exam: Normal Inspection, Muscle Spasm (left lower) Extremities: Normal Inspection, Non-Tender, Normal Capillary Refill, Arm Pain ( left with pain, right with laceration and skin tear), Leg Pain (left), Limited Range of Motion (increased pain with straight leg lift and any attempt to internal or external rotate left hip) Neurological: Alert, Oriented, CN II-XII Intact, Normal Cognition, Normal Gait, Normal Reflexes, No Motor/Sensory Deficits Psychiatric: Normal Affect, Normal Mood Skin Exam: Warm, Dry, Normal Color, Other (laceration and skin tear to right forearm) Lymphatic: No Adenopathy Course - Vital Signs Last Recorded V/S: Last Vital Signs Temp 36.8 C 09/21/17 09:45 Pulse 81 09/21/17 09:45 Resp 16 09/21/17 09:45 BP 103/57 L 09/21/17 09:45 Pulse Ox 91 L 09/21/17 09:45 - Orders/Labs/Meds Labs: Laboratory Tests 09/19/17 09/19/17 09/19/17 Range/Units 21:52 21:52 21:52 WBC 9.1 (4.5-11.0) K/uL RBC 3.79 L (4.30-5.90) M/uL Hgb 12.1 D (12.0-15.0) g/dL Hct 36.5 L (40.0-54.0) % MCV 96 (80-98) fL MCH 32 H (27-31) pg MCHC 33 (32-36) % Plt Count 155 (150-400) K/uL Neut % (Auto) 69 H (36-66) % Lymph % (Auto) 17 L (24-44) % [place] % (Auto) 10 H (2-6) % Eos % (Auto) 3 (2-4) % Baso % (Auto) 0 (0-1) % PT 11.3 (9.5-12.0) sec INR 1.05 (0.80-1.20) Sodium 144 (140-148) mmol/L Potassium 4.2 (3.6-5.2) mmol/L Chloride 107 (100-108) mmol/L Carbon Dioxide 28 (21-32) mmol/L Anion Gap 9.0 (5.0-14.0) mmol/L BUN 22 H (7-18) mg/dL Creatinine 1.4 H (0.8-1.3) mg/dL Est Cr Clr Drug Dosing 42.75 mL/min Estimated GFR (MDRD) 49 L (>60) Glucose 95 (74-106) mg/dL Calcium 8.5 (8.5-10.1) mg/dL Total Bilirubin 1.3 H (0.2-1.0) mg/dL AST 28 (15-37) U/L ALT 25 (12-78) U/L Alkaline Phosphatase 63 (46-116) U/L Total Protein 6.2 L (6.4-8.2) g/dL Albumin 3.4 (3.4-5.0) g/dL Globulin 2.8 (2.3-3.5) g/dL Albumin/Globulin Ratio 1.2 (1.2-2.2) Meds: Medications Discontinued Medications Generic Name Dose Route Start Last Admin Trade Name Freq PRN Reason Stop Dose Admin Acetaminophen 650 mg 09/20/17 02:01 Tylenol PO Q4H PRN Pain (Mild 1-3)/fever Hydrocodone Bitart/Acetaminophen 1 - 2 tab 09/20/17 16:26 09/21/17 02:47 [place] 325-5 Mg PO 2 tab Q4H PRN Administration Pain Albuterol 2.5 mg 09/20/17 02:01 Proventil Neb Soln NEB Q4H PRN Shortness Of Breath/wheezing Albuterol/Ipratropium 3 ml 09/20/17 02:01 Duoneb 3.0-0.5 Mg/3 Ml NEB QID PRN Shortness Of Breath/wheezing Bacitracin 1 dose 09/19/17 22:14 09/19/17 22:22 Bacitracin Oint 1 Gm TOP 09/19/17 22:15 1 dose ONETIME ONE Administration Bisacodyl 5 mg 09/20/17 02:01 Dulcolax PO DAILY PRN Constipation Docusate Sodium 100 mg 09/20/17 02:01 Colace PO BID PRN Constipation Hydromorphone HCl 0 mg 09/20/17 02:01 09/20/17 02:30 Dilaudid Property Claim Rep 15 Mg In Ns 30 Ml IV 15 mg ASDIRECTED PRN Administration Pain Protocol Sodium Chloride 1,000 mls @ 500 mls/hr 09/19/17 21:30 09/19/17 22:07 Normal Saline IV 500 mls/hr ASDIRECTED [place] Administration Sodium Chloride 100 mls @ 3 mls/sec 09/19/17 22:30 09/19/17 22:52 Normal Saline IV 3 mls/sec ASDIRECTED [place] Administration Sodium Chloride 1,000 mls @ 125 mls/hr 09/20/17 00:30 09/20/17 09:43 Normal Saline IV 125 mls/hr ASDIRECTED [place] Administration Iopamidol 136 ml 09/19/17 22:30 09/19/17 22:52 Isovue-300 (61%) IV 136 ml . DIRECTED [place] Administration Lidocaine HCl 5 ml 09/19/17 22:13 09/19/17 22:23 Xylocaine-Mpf 1% INJECT 09/19/17 22:14 5 ml ONETIME ONE Administration Lorazepam 1 mg 09/20/17 02:01 Ativan IV Q6H PRN Nausea/Vomiting Morphine Sulfate 2 mg 09/19/17 22:13 09/19/17 22:23 Morphine IVPUSH 09/19/17 22:14 2 mg ONETIME ONE Administration Naloxone HCl 0.4 mg 09/20/17 02:01 Narcan IVPUSH Q2M PRN Respiratory Distress Ondansetron HCl 4 mg 09/19/17 22:13 09/19/17 22:23 Zofran IVPUSH 09/19/17 22:14 4 mg ONETIME ONE Administration Ondansetron HCl 4 mg 09/20/17 02:01 Zofran Odt PO Q6H PRN Nausea able to take PO Pneumococcal Polyvalent Vaccine 0.5 ml 09/21/17 12:00 09/21/17 11:38 Pneumovax 23 IM 09/21/17 12:01 0.5 ml .ONCE ONE Administration Senna/Docusate Sodium 1 tab 09/20/17 21:00 09/21/17 10:01 Senna Plus PO 1 tab BID R[place] Administration Zolpidem Tartrate 5 mg 09/20/17 02:01 Ambien PO BEDTIME PRN Sleep - Re-Assessments/Exams Free Text/Narrative Re-Assessment/Exam: While in ER, he had labs; CBC, CMP, UA; no acute finding. Imaging; CT cervical spine, abdomen-pelvis, left hips. negative except for non displaced fracture of inferior and superior ramus of pelvis; see CT reports for full radiology report. Given IV fluids, Morphine, Zofran; pain controlled. Did consult with Orthopedics, report this is not a surgical case, requires non weight bearing, pain controll. will admit Observation for pain control. and Mrs. Castanon agree with plan of care. Departure - Departure Time of Disposition: 01:00 Disposition: Admitted As Inpatient 66 Condition: Good Clinical Impression: Inferior pubic ramus fracture, Fracture of superior ramus of left pubis, Laceration of right forearm without complication - Discharge Information - Problem List & Annotations (1) Fracture of superior ramus of left pubis SNOMED Code(s): 156944143 Code(s): S32.512A - FRACTURE OF SUPERIOR RIM OF LEFT PUBIS, INIT FOR CLOS FX Status: Acute Priority: High Qualifiers: Encounter type: initial encounter Fracture type: closed Qualified Code(s) : S32.512A - Fracture of superior rim of left pubis, initial encounter for closed fracture (2) Inferior pubic ramus fracture SNOMED Code(s): 136380651 Code(s): S32.599A - OTH FRACTURE OF UNSP PUBIS, INIT ENCNTR FOR CLOSED FRACTURE Status: Acute Priority: High Qualifiers: Encounter type: initial encounter (3) Laceration of right forearm without complication SNOMED Code(s): 992600993 Code(s): S51.811A - LACERATION W/O FOREIGN BODY OF RIGHT FOREARM, INIT ENCNTR Status: Acute Priority: High Qualifiers: Encounter type: initial encounter Qualified Code(s): S51.811A - Laceration without foreign body of right forearm, initial encounter
== END 2017-09-21 12:20 | disposition home health service (06) ==
LOC: JP.ED 21:15 → JP.MS 09-20 00:40
PROVIDERS: ADMIT Hospitalist; ATTEND Hospitalist
DX: S32.592A Other specified fracture of left pubis, initial encounter for closed fracture (principal); S32.512A Fracture of superior rim of left pubis, initial encounter for closed fracture; S51.811A Laceration without foreign body of right forearm, initial encounter; Z79.82 Long term (current) use of aspirin; Z79.899 Other long term (current) drug therapy; Z88.8 Allergy status to other drugs, medicaments and biological substances; Z90.49 Acquired absence of other specified parts of digestive tract; Z98.890 Other specified postprocedural states; Z96.661 Presence of right artificial ankle joint; Z96.641 Presence of right artificial hip joint; W11.XXXA Fall on and from ladder, initial encounter
CPT/HCPCS: 12001; 36415; 72125; 73030; 73562; 73700; 74177; 80048; 80053; 81001; 85025; 85610; 96361; 96374; 96375; 97110; 97161; 97165; 97530; 99217; 99218; 99285; A9270; G0009; G0378; J1170; J2270; J2405; J7030; J7040; 90732; 99284-25

== ENCOUNTER 2019-06-25 06:57 | Inpatient (IN) | payer MEDICARE ==
[~2019-06-25 06:57] MED LIST: Tranexamic Acid 880 MG in Sodium Chloride 0.9% 50 ML IV ONE
[2019-06-25] MEDS ORDERED: Povidone-Iodine 10% Soln 118.25 ML Bottle ONE (07:04)
[2019-06-25] MEDS ORDERED: fentaNYL 100 MCG/2 ML SDV ONE (07:12)
[2019-06-25] MEDS ORDERED: Propofol 200 MG/20 ML SDV ONE ×2 (07:12→11:30)
[2019-06-25] MEDS ORDERED: Midazolam 1 MG/ML 2 ML SDV ONE (07:12)
[2019-06-25] MEDS ORDERED: Scopolamine 1.5 MG Transdermal Patch TOP ONE (07:15)
[2019-06-25] MEDS ORDERED: Gabapentin 300 MG Cap PO ONE (07:15)
[2019-06-25] MEDS: Nozin Nasal Sanitizer NASBOTH SCH ×3 (07:40→21:37)
[2019-06-25] MEDS ORDERED: Lactated Ringers 1,000 ML IV SCH (08:00)
[2019-06-25] MEDS ORDERED: ceFAZolin 2 GM in Premix Bag 1 BAG IV ONE (08:30)
[2019-06-25] MEDS ORDERED: Tranexamic Acid 880 MG in Sodium Chloride 0.9% 50 ML IV ONE (08:45)
[2019-06-25] MEDS: ceFAZolin 2 GM in Sodium Chloride 0.9% 50 ML IV ONE ×2 (10:53→15:00)
[2019-06-25] MEDS ORDERED: Lactated Ringers 1,000 ML ONE (11:20)
[2019-06-25] MEDS ORDERED: ePHEDrine 50 MG/ML SDV ONE (12:00)
[2019-06-25] MEDS ORDERED: Ondansetron 4 MG/2 ML SDV IVPUSH PRN (13:05)
[2019-06-25] MEDS ORDERED: hydrOXYzine HCl 100 MG/2 ML SDV IM ONE (13:50)
[2019-06-25] MEDS: Morphine 2 MG/ML Syringe IVPUSH PRN ×3 (13:54→17:32)
[2019-06-25] MEDS ORDERED: fentaNYL 100 MCG/2 ML SDV IVPUSH ONE ×2 (13:56→14:10)
[2019-06-25] MEDS: Acetaminophen/oxyCODONE 325-5 MG Tab PO PRN (14:56)
[2019-06-25] MEDS: Sodium Chloride 0.9% 1,000 ML IV SCH (16:00)
--- NOTE | 2019-06-25 16:17 | CR ---
Knee 1V or 2V Bi CLINICAL HISTORY: Bilateral knee arthroplasties FINDINGS: Patient has bilateral 3 component probably arthroplasties. Components appear well seated. Impression: Status post recent 3 component total arthroplasties
[2019-06-25] MEDS: ceFAZolin 1 GM in Premix Bag 1 BAG IV SCH (17:36)
[2019-06-26] MEDS: Sodium Chloride 0.9% 1,000 ML IV SCH ×2 (00:27→16:11)
[2019-06-26] MEDS: Acetaminophen/oxyCODONE 325-5 MG Tab PO PRN ×3 (00:38→19:54)
[2019-06-26] MEDS: ceFAZolin 1 GM in Premix Bag 1 BAG IV SCH ×2 (02:39→10:23)
[2019-06-26] MEDS: Acetaminophen/HYDROcodone 325-5 MG Tab PO PRN ×2 (02:44→08:29)
[2019-06-26] MEDS: Docusate Sodium 100 MG Cap PO PRN ×2 (02:44→19:54)
[2019-06-26] MEDS: Enoxaparin 30 MG/0.3 ML Syringe SUBCUT SCH (08:32)
[2019-06-26] MEDS: Nozin Nasal Sanitizer NASBOTH SCH ×2 (08:33→20:02)
[2019-06-27] MEDS: Sodium Chloride 0.9% 1,000 ML IV SCH ×2 (00:14→09:16)
[2019-06-27] MEDS: Acetaminophen/oxyCODONE 325-5 MG Tab PO PRN ×2 (02:17→09:16)
[2019-06-27] MEDS: Magnesium Hydroxide 400 MG/5 ML Susp 30 ML Cup PO PRN (09:19)
[2019-06-27] MEDS: Enoxaparin 30 MG/0.3 ML Syringe SUBCUT SCH (09:19)
[2019-06-27] MEDS: Nozin Nasal Sanitizer NASBOTH SCH ×2 (09:19→22:29)
[2019-06-27] MEDS ORDERED: Acetaminophen/HYDROcodone 325-5 MG Tab PO PRN (12:48)
[2019-06-27] MEDS ORDERED: Bisacodyl 5 MG Tab PO PRN (12:59)
[2019-06-27] MEDS: traMADol 50 MG Tab PO PRN (14:09)
--- NOTE | 2019-06-27 15:41 | OR ---
DATE OF PROCEDURE: 06/25/2019 PREOPERATIVE DIAGNOSIS: End-stage osteoarthritis, bilateral knees. POSTOPERATIVE DIAGNOSIS: End-stage osteoarthritis, bilateral knees. PROCEDURE: Bilateral total knee arthroplasties using Amy Persona components. ANESTHESIA: Spinal with sedation. INDICATIONS: Jeremie is a 79-year-old gentleman with a history of progressive bilateral knee pain for the past several years. X-ray and examination are consistent with severe end- stage osteoarthritis with complete joint space collapse, mild valgus deformity with loss of bone, and limited range of motion. He now presents for bilateral total knee arthroplasties. Risks, benefits, potential complications of the procedure were discussed including the risks and benefits of doing one knee versus bilateral knee procedures. PROCEDURE IN DETAIL: After adequate anesthesia was obtained, the patient was placed supine and tourniquets were placed above both right and left upper thighs. Both legs were then prepped and draped in a sterile fashion. Procedure began with the right knee. The left knee was covered with sterile drape. Longitudinal incision was made over the anterior aspect of the knee and carried down through the subcutaneous tissues. Hemostasis obtained with electrocautery. Medial parapatellar approach was made. Patella was everted and it showed severe wear of the patella and trochlear groove. Posterior aspect of the patella was resected with an oscillating saw. Medial release was performed and the anterior horn of the medial meniscus was excised. Intramedullary canal of the femur was drilled and the intramedullary distal femoral cutting guide was placed. Distal femoral resection was then made with an oscillating saw. Guide was removed and the extramedullary tibial guide was then placed. This was aligned with the axis of the tibia and secured with pins. Proximal tibia was then resected. Remaining meniscus was excised both medial and laterally. Attention was returned to the femur, which was sized to a 7component. Drill holes were placed and the 7 cutting guide was then secured to the femur. Anterior, posterior, and chamfer cuts were made with an oscillating saw. Trial femoral component was placed and centered. Intercondylar notch cut was then made with a reciprocating saw. Holes were then drilled for the pegs. It was noted that inadequate gap was available and additional proximal tibia was resected, placing the cutting guide back onto the guide pins. After this was completed, adequate space was available. The tibia was sized. Base plate and trial inserts were then inserted and the knee was taken through range of motion. This showed excellent fit over the proximal tibia. This was then pinned in place. Trial polyethylene was removed and tibial preparation was completed with reamer and punch. Trial components were replaced. The knee again taken through range of motion and found to have very good balance with full extension. Patella was resurfaced and a trial patella placed , which did show some lateral tracking and a lateral release was performed. Trials were then removed. The knee was thoroughly irrigated with pulse lavage. Surfaces were dried and components were cemented in place. Excess cement was removed. The knee was held in full extension with a trial insert as the cement cured. Final trial showed good balance in flexion and extension with full extension obtained. Trials were removed and the final polyethylene was snapped into position. Knee was irrigated once again with pulse lavage and then irrigated with dilute Betadine solution, which was left in place for approximately 2 minutes and then irrigated out. Knee was closed with #2 Ethibond in interrupted fashion in the capsular layer 2-0 Vicryl and a running 3-0 Monocryl in the skin. Steri-Strips were applied. Light dressing was placed over the knee and the knee was then covered with sterile drape. Tourniquet was released down on the right side. Attention was then turned to the left knee, which was re-prepped with ChloraPrep prep stick on the field. Longitudinal incision was again made anteriorly, carried down to the subcutaneous tissues with a medial parapatellar approach. Similar findings were noted with severe end-stage wear and mild valgus deformity. Posterior patella was resected with an oscillating saw. Intramedullary canal of the femur was drilled and intramedullary guide was placed. Distal cutting guide was secured with additional 2 mm removed due to the valgus deformity. Cutting guide was removed and attention was turned to the tibia. Tibial cutting guide was secured, aligned with the tibia and the proximal tibia was then resected. Remaining meniscus excised medially and laterally. Femur was again sized to a 7 and the cutting guide was placed and cuts were made with an oscillating saw. Trial femur was placed. Intercondylar notch cut was made for a posterior cruciate sacrificing component. Tibia was sized and trial placed and again the knee was taken through range of motion and found to have excellent balance in flexion and extension. Tibial plate was pinned into position and tibial preparation completed with a reamer and punch. Patella was resurfaced and taken through range of motion. This also showed slight lateral tracking and a lateral release was performed. Trials were removed. Knee was thoroughly irrigated with pulse lavage. Surfaces were dried and components were cemented in place. Excess cement was removed and the knee was held in full extension with the trial insert while cement cured. Knee was taken through range of motion, checking balance in flexion and extension. Trial was removed and the final polyethylene was snapped into position. The knee was irrigated once again with a pulse lavage. This was followed by dilute Betadine irrigation, which was again left for approximately 2 minutes before being irrigated with pulse lavage a final time. Capsule was closed with a #2 Ethibond in interrupted fashion. Skin was closed with 2-0 Vicryl and a running 3-0 Monocryl. Steri-Strips were applied. Light compressive dressings were then placed on both knees. The patient tolerated the procedure very well. There were no complications. He was taken from the operating room in a stable condition. Pool Putnam MD /[id number] MTDGlen
--- NOTE | 2019-06-27 17:13 | PCM.SURGPN ---
- General Info Date of Service: 06/26/19 Date of Surgery/Procedure: 06/25/19 POD#: 1 Post-Op Diagnosis: S/P bilateral TKA Functional Status: Reports: Tolerating Diet - Review of Systems General: Reports: No Symptoms HEENT: Reports: No Symptoms Pulmonary: Reports: No Symptoms Cardiovascular: Reports: No Symptoms Gastrointestinal: Reports: No Symptoms Genitourinary: Reports: No Symptoms Musculoskeletal: Reports: Leg Pain Skin: Reports: No Symptoms Neurological: Reports: Confusion - Patient Data Vitals - Most Recent: Last Vital Signs Temp 37.8 C 06/27/19 14:38 Pulse 102 H 06/27/19 14:38 Resp 18 06/27/19 14:38 BP 105/51 L 06/27/19 14:38 Pulse Ox 94 L 06/27/19 14:38 Weight - Most Recent: 86.863 kg I&O - Last 24 Hours: Intake & Output 06/27/19 06/27/19 06/27/19 06:59 14:59 22:59 Intake Total 3416 320 Output Total 205 400 Balance 3211 -80 Med Orders - Current: Current Medications Acetaminophen (Tylenol) 650 mg PO Q4H PRN PRN Reason: Pain (mild 1-3) Hydrocodone Bitart/Acetaminophen ([place] 325-5 Mg) 2 tab PO Q4H PRN PRN Reason: Pain (moderate 4-6) Bandage/Support Products ( Nasal Right Of Way Buyer) 1 applic NASBOTH BID [facility] Last Admin: 06/27/19 09:19 Dose: 1 swab Bisacodyl (Dulcolax) 10 mg PO DAILY PRN PRN Reason: Constipation Docusate Sodium (Colace) 100 mg PO BID PRN PRN Reason: Constipation Last Admin: 06/26/19 19:54 Dose: 100 mg Enoxaparin Sodium (Lovenox) 30 mg SUBCUT DAILY [facility] Last Admin: 06/27/19 09:19 Dose: 30 mg Sodium Chloride (Normal Saline) 1,000 mls @ 125 mls/hr IV ASDIRECTED [facility] Last Admin: 06/27/19 09:16 Dose: 125 mls/hr Magnesium Hydroxide (Milk Of Magnesia) 30 ml PO BID PRN PRN Reason: Constipation Last Admin: 06/27/19 09:19 Dose: 30 ml Morphine Sulfate (Morphine) 2 mg IVPUSH Q1H PRN PRN Reason: Breakthrough Pain Last Admin: 06/25/19 17:32 Dose: 2 mg Ondansetron HCl (Zofran) 4 mg IVPUSH Q6H PRN PRN Reason: Nausea/Vomiting Tramadol HCl (Ultram) 50 mg PO Q6H PRN PRN Reason: Pain (mild 1-3) Last Admin: 06/27/19 14:09 Dose: 50 mg Discontinued Medications Hydrocodone Bitart/Acetaminophen ([place] 325-5 Mg) 1 tab PO Q3H PRN PRN Reason: Pain (mild 1-3) Last Admin: 06/26/19 08:29 Dose: 1 tab Ephedrine Sulfate (Ephedrine Sulfate) Confirm Administered Dose 50 mg .ROUTE .STK-MED ONE Stop: 06/25/19 12:01 Fentanyl (Sublimaze) Confirm Administered Dose 100 mcg .ROUTE .STK-MED ONE Stop: 06/25/19 07:13 Fentanyl (Sublimaze) 50 mcg IVPUSH ONETIME ONE Stop: 06/25/19 13:57 Last Admin: 06/25/19 14:07 Dose: 50 mcg Fentanyl (Sublimaze) 50 mcg IVPUSH ONETIME ONE Stop: 06/25/19 14:11 Last Admin: 06/25/19 14:58 Dose: Not Given Gabapentin (Neurontin) 300 mg PO ONETIME ONE Stop: 06/25/19 07:16 Last Admin: 06/25/19 07:33 Dose: 300 mg Hydroxyzine HCl (Vistaril) 100 mg IM ONETIME ONE Stop: 06/25/19 13:51 Last Admin: 06/25/19 13:55 Dose: 100 mg Lactated Ringer's (Ringers, Lactated) 1,000 mls @ 75 mls/hr IV ASDIRECTED [facility] Last Admin: 06/25/19 08:09 Dose: 75 mls/hr Cefazolin Sodium 2 gm/ Sodium (Chloride) 50 mls @ 100 mls/hr IV ONETIME ONE Stop: 06/25/19 08:59 Last Admin: 06/25/19 15:00 Dose: Not Given Tranexamic Acid 880 mg/ Sodium (Chloride) 58.8 mls @ 235.2 mls/hr IV ONETIME ONE Stop: 06/25/19 08:59 Last Admin: 06/25/19 10:53 Dose: 235.2 mls/hr Lactated Ringer's (Ringers, Lactated) Confirm Administered Dose 1,000 mls @ as directed .ROUTE .STK-MED ONE Stop: 06/25/19 11:21 Cefazolin Sodium/Dextrose 1 gm (/ Premix) 50 mls @ 100 mls/hr IV Q8H [facility] Stop: 06/26/19 10:29 Last Admin: 06/26/19 10:23 Dose: 100 mls/hr Midazolam HCl (Versed 1 Mg/Ml) Confirm Administered Dose 2 mg .ROUTE .STK-MED ONE Stop: 06/25/19 07:13 Oxycodone/Acetaminophen (Percocet 325-5 Mg) 2 tab PO Q4H PRN PRN Reason: Pain Last Admin: 06/27/19 09:16 Dose: 2 tab Povidone Iodine (Betadine 10% Soln) Confirm Administered Dose 1 ml .ROUTE .STK- MED ONE Stop: 06/25/19 07:05 Last Admin: 06/25/19 10:58 Dose: 1 ml Propofol (Diprivan 20 Ml) Confirm Administered Dose 200 mg .ROUTE .STK-MED ONE Stop: 06/25/19 07:13 Propofol (Diprivan 20 Ml) Confirm Administered Dose 200 mg .ROUTE .STK-MED ONE Stop: 06/25/19 11:31 Scopolamine (Transderm-Scop) 1.5 mg TOP ONETIME ONE Stop: 06/25/19 07:16 Last Admin: 06/25/19 07:34 Dose: 1.5 mg - Exam Wound/Incisions: Dressing Dry and Intact General: Lethargic HEENT: Pupils Equal Neck: Supple Cardiovascular: Regular Rate, Regular Rhythm GI/Abdominal Exam: Normal Bowel Sounds, Soft, Non-Tender, No Organomegaly, No Distention, No Abnormal Bruit, No Mass, Pelvis Stable Extremities: Limited Range of Motion Skin: Warm, Dry, Intact Neurological: No New Focal Deficit Psy/Mental Status: Other (sedated and confused) - Problem List & Annotations (1) Status post total bilateral knee replacement SNOMED Code(s): 1986885916690, 6215424924292 Code(s): Z96.653 - PRESENCE OF ARTIFICIAL KNEE JOINT, BILATERAL Status: Acute Current Visit: Yes - Problem List Review Problem List Initiated/Reviewed/Updated: Yes - My Orders Last 24 Hours: Active Orders 24 hr Category Date Time Status DC Carmona Catheter [Urinary Catheter Removal] [RC] PER Care 06/27/19 12:57 Active UNIT ROUTINE Acetaminophen [Tylenol] Med 06/27/19 12:50 Active 650 mg PO Q4H PRN Acetaminophen/HYDROcodone [[place] 325-5 MG] Med 06/27/19 12:48 Active 2 tab PO Q4H PRN Bisacodyl [Dulcolax] Med 06/27/19 12:59 Active 10 mg PO DAILY PRN traMADol [Ultram] Med 06/27/19 12:49 Active 50 mg PO Q6H PRN Medication Orders Acetaminophen (Tylenol) 650 mg PO Q4H PRN PRN Reason: Pain (mild 1-3) Hydrocodone Bitart/Acetaminophen ([place] 325-5 Mg) 2 tab PO Q4H PRN PRN Reason: Pain (moderate 4-6) Bandage/Support Products ( Nasal Right Of Way Buyer) 1 applic NASBOTH BID [facility] Last Admin: 06/27/19 09:19 Dose: 1 swab Admin: 06/26/19 20:02 Dose: 1 swab Admin: 06/26/19 08:33 Dose: 1 swab Admin: 06/25/19 21:37 Dose: 1 swab Admin: 06/25/19 15:00 Dose: Admin: 06/25/19 07:40 Dose: 3 swab Bisacodyl (Dulcolax) 10 mg PO DAILY PRN PRN Reason: Constipation Docusate Sodium (Colace) 100 mg PO BID PRN PRN Reason: Constipation Last Admin: 06/26/19 19:54 Dose: 100 mg Admin: 06/26/19 02:44 Dose: 100 mg Enoxaparin Sodium (Lovenox) 30 mg SUBCUT DAILY [facility] Last Admin: 06/27/19 09:19 Dose: 30 mg Admin: 06/26/19 08:32 Dose: 30 mg Sodium Chloride (Normal Saline) 1,000 mls @ 125 mls/hr IV ASDIRECTED [facility] Last Admin: 06/27/19 09:16 Dose: 125 mls/hr Infusion: 06/27/19 08:14 Dose: 125 mls/hr Admin: 06/27/19 00:14 Dose: 125 mls/hr Infusion: 06/27/19 00:11 Dose: 125 mls/hr Admin: 06/26/19 16:11 Dose: 125 mls/hr Infusion: 06/26/19 08:27 Dose: 125 mls/hr Admin: 06/26/19 00:27 Dose: 125 mls/hr Infusion: 06/26/19 00:00 Dose: 125 mls/hr Admin: 06/25/19 16:00 Dose: 125 mls/hr Magnesium Hydroxide (Milk Of Magnesia) 30 ml PO BID PRN PRN Reason: Constipation Last Admin: 06/27/19 09:19 Dose: 30 ml Morphine Sulfate (Morphine) 2 mg IVPUSH Q1H PRN PRN Reason: Breakthrough Pain Last Admin: 06/25/19 17:32 Dose: 2 mg Admin: 06/25/19 15:55 Dose: 2 mg Admin: 06/25/19 13:54 Dose: 2 mg Ondansetron HCl (Zofran) 4 mg IVPUSH Q6H PRN PRN Reason: Nausea/Vomiting Tramadol HCl (Ultram) 50 mg PO Q6H PRN PRN Reason: Pain (mild 1-3) Last Admin: 06/27/19 14:09 Dose: 50 mg - Assessment Assessment (Free Text/Narrative):: Sedation and confusion secondary to post op medications, otherwise stable. Has not been able to participate in PT/ot fully due to confusion. - Plan Plan (Free Text/Narrative):: Adjust pain medication, hold IV morphine, continue Carmona tonight. Hopefully more alert later today and tomorrow.
--- NOTE | 2019-06-27 17:20 | PCM.SURGPN ---
- General Info Date of Service: 06/27/19 Date of Surgery/Procedure: 06/25/19 POD#: 2 Post-Op Diagnosis: S/P bilateral TKA Functional Status: Reports: Pain Controlled, Tolerating Diet - Review of Systems General: Reports: No Symptoms HEENT: Reports: No Symptoms Pulmonary: Reports: No Symptoms Cardiovascular: Reports: No Symptoms Gastrointestinal: Reports: Constipation Genitourinary: Reports: No Symptoms Musculoskeletal: Reports: Leg Pain Skin: Reports: No Symptoms Neurological: Reports: Confusion, Other (not as lethargic but still confused) - Patient Data Vitals - Most Recent: Last Vital Signs Temp 37.8 C 06/27/19 14:38 Pulse 102 H 06/27/19 14:38 Resp 18 06/27/19 14:38 BP 105/51 L 06/27/19 14:38 Pulse Ox 94 L 06/27/19 14:38 Weight - Most Recent: 86.863 kg I&O - Last 24 Hours: Intake & Output 06/27/19 06/27/19 06/27/19 06:59 14:59 22:59 Intake Total 3416 320 1014 Output Total 205 400 475 Balance 3211 -80 539 Med Orders - Current: Current Medications Acetaminophen (Tylenol) 650 mg PO Q4H PRN PRN Reason: Pain (mild 1-3) Hydrocodone Bitart/Acetaminophen ([place] 325-5 Mg) 2 tab PO Q4H PRN PRN Reason: Pain (moderate 4-6) Bandage/Support Products ( Nasal Assistant Counsel) 1 applic NASBOTH BID [facility] Last Admin: 06/27/19 09:19 Dose: 1 swab Bisacodyl (Dulcolax) 10 mg PO DAILY PRN PRN Reason: Constipation Docusate Sodium (Colace) 100 mg PO BID PRN PRN Reason: Constipation Last Admin: 06/26/19 19:54 Dose: 100 mg Enoxaparin Sodium (Lovenox) 30 mg SUBCUT DAILY [facility] Last Admin: 06/27/19 09:19 Dose: 30 mg Sodium Chloride (Normal Saline) 1,000 mls @ 125 mls/hr IV ASDIRECTED [facility] Last Admin: 06/27/19 09:16 Dose: 125 mls/hr Magnesium Hydroxide (Milk Of Magnesia) 30 ml PO BID PRN PRN Reason: Constipation Last Admin: 06/27/19 09:19 Dose: 30 ml Morphine Sulfate (Morphine) 2 mg IVPUSH Q1H PRN PRN Reason: Breakthrough Pain Last Admin: 06/25/19 17:32 Dose: 2 mg Ondansetron HCl (Zofran) 4 mg IVPUSH Q6H PRN PRN Reason: Nausea/Vomiting Tramadol HCl (Ultram) 50 mg PO Q6H PRN PRN Reason: Pain (mild 1-3) Last Admin: 06/27/19 14:09 Dose: 50 mg Discontinued Medications Hydrocodone Bitart/Acetaminophen ([place] 325-5 Mg) 1 tab PO Q3H PRN PRN Reason: Pain (mild 1-3) Last Admin: 06/26/19 08:29 Dose: 1 tab Ephedrine Sulfate (Ephedrine Sulfate) Confirm Administered Dose 50 mg .ROUTE .STK-MED ONE Stop: 06/25/19 12:01 Fentanyl (Sublimaze) Confirm Administered Dose 100 mcg .ROUTE .STK-MED ONE Stop: 06/25/19 07:13 Fentanyl (Sublimaze) 50 mcg IVPUSH ONETIME ONE Stop: 06/25/19 13:57 Last Admin: 06/25/19 14:07 Dose: 50 mcg Fentanyl (Sublimaze) 50 mcg IVPUSH ONETIME ONE Stop: 06/25/19 14:11 Last Admin: 06/25/19 14:58 Dose: Not Given Gabapentin (Neurontin) 300 mg PO ONETIME ONE Stop: 06/25/19 07:16 Last Admin: 06/25/19 07:33 Dose: 300 mg Hydroxyzine HCl (Vistaril) 100 mg IM ONETIME ONE Stop: 06/25/19 13:51 Last Admin: 06/25/19 13:55 Dose: 100 mg Lactated Ringer's (Ringers, Lactated) 1,000 mls @ 75 mls/hr IV ASDIRECTED [facility] Last Admin: 06/25/19 08:09 Dose: 75 mls/hr Cefazolin Sodium 2 gm/ Sodium (Chloride) 50 mls @ 100 mls/hr IV ONETIME ONE Stop: 06/25/19 08:59 Last Admin: 06/25/19 15:00 Dose: Not Given Tranexamic Acid 880 mg/ Sodium (Chloride) 58.8 mls @ 235.2 mls/hr IV ONETIME ONE Stop: 06/25/19 08:59 Last Admin: 06/25/19 10:53 Dose: 235.2 mls/hr Lactated Ringer's (Ringers, Lactated) Confirm Administered Dose 1,000 mls @ as directed .ROUTE .STK-MED ONE Stop: 06/25/19 11:21 Cefazolin Sodium/Dextrose 1 gm (/ Premix) 50 mls @ 100 mls/hr IV Q8H [place] Stop: 06/26/19 10:29 Last Admin: 06/26/19 10:23 Dose: 100 mls/hr Midazolam HCl (Versed 1 Mg/Ml) Confirm Administered Dose 2 mg .ROUTE .STK-MED ONE Stop: 06/25/19 07:13 Oxycodone/Acetaminophen (Percocet 325-5 Mg) 2 tab PO Q4H PRN PRN Reason: Pain Last Admin: 06/27/19 09:16 Dose: 2 tab Povidone Iodine (Betadine 10% Soln) Confirm Administered Dose 1 ml .ROUTE .STK- MED ONE Stop: 06/25/19 07:05 Last Admin: 06/25/19 10:58 Dose: 1 ml Propofol (Diprivan 20 Ml) Confirm Administered Dose 200 mg .ROUTE .STK-MED ONE Stop: 06/25/19 07:13 Propofol (Diprivan 20 Ml) Confirm Administered Dose 200 mg .ROUTE .STK-MED ONE Stop: 06/25/19 11:31 Scopolamine (Transderm-Scop) 1.5 mg TOP ONETIME ONE Stop: 06/25/19 07:16 Last Admin: 06/25/19 07:34 Dose: 1.5 mg - Exam Wound/Incisions: Healing Well, No Drainage, Other (incisions look very good) General: Other (confused) HEENT: Pupils Equal Neck: Supple Lungs: Clear to Auscultation, Normal Respiratory Effort Cardiovascular: Regular Rate, Regular Rhythm GI/Abdominal Exam: Normal Bowel Sounds, Soft, Non-Tender, No Organomegaly, No Distention, No Abnormal Bruit, No Mass, Pelvis Stable Extremities: Limited Range of Motion Skin: Warm, Dry, Intact Neurological: No New Focal Deficit - Problem List & Annotations (1) Status post total bilateral knee replacement SNOMED Code(s): 8148389956161, 6175913835325 Code(s): Z96.653 - PRESENCE OF ARTIFICIAL KNEE JOINT, BILATERAL Status: Acute Current Visit: Yes (2) Delirium SNOMED Code(s): 6837986 Code(s): R41.0 - DISORIENTATION, UNSPECIFIED Status: Acute Current Visit : Yes Annotation/Comment:: Secondary to multiple medications - Problem List Review Problem List Initiated/Reviewed/Updated: Yes - My Orders Last 24 Hours: Active Orders 24 hr Category Date Time Status DC Carmona Catheter [Urinary Catheter Removal] [RC] PER Care 06/27/19 12:57 Active UNIT ROUTINE Acetaminophen [Tylenol] Med 06/27/19 12:50 Active 650 mg PO Q4H PRN Acetaminophen/HYDROcodone [[place] 325-5 MG] Med 06/27/19 12:48 Active 2 tab PO Q4H PRN Bisacodyl [Dulcolax] Med 06/27/19 12:59 Active 10 mg PO DAILY PRN traMADol [Ultram] Med 06/27/19 12:49 Active 50 mg PO Q6H PRN Medication Orders Acetaminophen (Tylenol) 650 mg PO Q4H PRN PRN Reason: Pain (mild 1-3) Hydrocodone Bitart/Acetaminophen ([place] 325-5 Mg) 2 tab PO Q4H PRN PRN Reason: Pain (moderate 4-6) Bandage/Support Products ( Nasal Assistant Counsel) 1 applic NASBOTH BID [facility] Last Admin: 06/27/19 09:19 Dose: 1 swab Admin: 06/26/19 20:02 Dose: 1 swab Admin: 06/26/19 08:33 Dose: 1 swab Admin: 06/25/19 21:37 Dose: 1 swab Admin: 06/25/19 15:00 Dose: Admin: 06/25/19 07:40 Dose: 3 swab Bisacodyl (Dulcolax) 10 mg PO DAILY PRN PRN Reason: Constipation Docusate Sodium (Colace) 100 mg PO BID PRN PRN Reason: Constipation Last Admin: 06/26/19 19:54 Dose: 100 mg Admin: 06/26/19 02:44 Dose: 100 mg Enoxaparin Sodium (Lovenox) 30 mg SUBCUT DAILY [facility] Last Admin: 06/27/19 09:19 Dose: 30 mg Admin: 06/26/19 08:32 Dose: 30 mg Sodium Chloride (Normal Saline) 1,000 mls @ 125 mls/hr IV ASDIRECTED [facility] Last Admin: 06/27/19 09:16 Dose: 125 mls/hr Infusion: 06/27/19 08:14 Dose: 125 mls/hr Admin: 06/27/19 00:14 Dose: 125 mls/hr Infusion: 06/27/19 00:11 Dose: 125 mls/hr Admin: 06/26/19 16:11 Dose: 125 mls/hr Infusion: 06/26/19 08:27 Dose: 125 mls/hr Admin: 06/26/19 00:27 Dose: 125 mls/hr Infusion: 06/26/19 00:00 Dose: 125 mls/hr Admin: 06/25/19 16:00 Dose: 125 mls/hr Magnesium Hydroxide (Milk Of Magnesia) 30 ml PO BID PRN PRN Reason: Constipation Last Admin: 06/27/19 09:19 Dose: 30 ml Morphine Sulfate (Morphine) 2 mg IVPUSH Q1H PRN PRN Reason: Breakthrough Pain Last Admin: 06/25/19 17:32 Dose: 2 mg Admin: 06/25/19 15:55 Dose: 2 mg Admin: 06/25/19 13:54 Dose: 2 mg Ondansetron HCl (Zofran) 4 mg IVPUSH Q6H PRN PRN Reason: Nausea/Vomiting Tramadol HCl (Ultram) 50 mg PO Q6H PRN PRN Reason: Pain (mild 1-3) Last Admin: 06/27/19 14:09 Dose: 50 mg - Assessment Assessment (Free Text/Narrative):: Dressings removed, knees look good, still hasn't been able to participate with PT/OT well. Medications adjusted and scopolamine patch D/C'd for delirium. Hopefully will clear tonight. - Plan Plan (Free Text/Narrative):: D/C Carmona, scopolamine patch and Percocet. Continue PT/OT, hopefully can get walking tin AM. Making arrangements for SNF.
[2019-06-27] MEDS ORDERED: Haloperidol 1 MG Tab PO PRN (21:33)
--- NOTE | 2019-06-27 21:56 | PCM.SN ---
- Free Text/Narrative Note: Time 2104, call from [facility] [place] to evaluate Mr. Castanon for agitation. Nursing staff report Mr. Castanon has been confused since this morning. He had been taking narcotic pain medications for his bilateral knee surgery. Which have all been discontinue since this morning, has been given Tramadol for pain control. His is at bedside, she reports her has been restless and confused since 0900 this morning. He is a retired [employer] and thinks the Orthopedic bed frame is pipes and he is back at work. S: Mr. Castanon denies any pain. He is able to state his name, knows who is is, but is confused on dates and place. O: drowsy, falls asleep quickly, awakens to voice commands. does not appear to be in acute distress. mumbling words. vital signs: 99.1-55-18 B/P 106/50 O2 sat 95% on 2 l per NC. bladder scan 140 ml , adult diaper is dry, white cath removed at 4 pm today eyes: perrl, EOM intact mouth: lips and tongue appear dry neck: supple Chest: Lungs clear to bases, no wheezing, rhonchi or crackles, Heart S1S2 no murmur R/R/R Abdomen: soft, non tender, bowel sounds positive x 4 quad : circumcised male, scrotum with edema legs: mid line surgical incision bilateral knees, steri strip intact, incisions [id number] feet: +CMS, capillary refill less than 3 seconds skin: warm and dry. pallor Labs: CBC hemoglobin 8.2 decreased from 11. on 06-26-2019, hemocrit 24.8, WBC 10.1 , platelets 97 Chemistries Na+ 131, K+ 4.3, BUN 21, Cr. 1.2, GFR 58 glucose 115 A: confusion possible related to medication, mild dehydration, pain P: will give Melatonin 6 mg po for sleep Haldol 1mg po every 4 hours as needed for agitation IV Normal Saline @100ml/hr overnight rehydration continuous pulse ox. AM labs CBC, BMP continue with close monitoring.
[2019-06-27] MEDS: Melatonin 3 MG Tab PO SCH (22:28)
[2019-06-27] MEDS ORDERED: Sodium Chloride 0.9% 500 ML IV ONE (22:39)
[2019-06-27] MEDS: Acetaminophen 325 MG Tab PO PRN (23:10)
[2019-06-28] MEDS: Sodium Chloride 0.9% 1,000 ML IV SCH ×2 (00:07→05:18)
[2019-06-28] MEDS: ceFAZolin 1 GM in Sodium Chloride 0.9% 50 ML IV SCH ×2 (00:16→05:18)
[2019-06-28] MEDS: Docusate Sodium 100 MG Cap PO PRN ×2 (02:42→17:10)
[2019-06-28] MEDS: traMADol 50 MG Tab PO PRN ×2 (02:42→17:06)
[2019-06-28] MEDS: Nozin Nasal Sanitizer NASBOTH SCH ×2 (08:54→21:50)
[2019-06-28] MEDS: Enoxaparin 30 MG/0.3 ML Syringe SUBCUT SCH (08:55)
[2019-06-28] MEDS: Acetaminophen 325 MG Tab PO PRN (11:34)
[2019-06-28] MEDS: ceFAZolin 1 GM in Premix Bag 1 BAG IV SCH ×2 (11:36→17:11)
[2019-06-28] MEDS: Magnesium Hydroxide 400 MG/5 ML Susp 30 ML Cup PO PRN (17:10)
[2019-06-28] MEDS ORDERED: Melatonin 3 MG Tab PO SCH (21:00)
[2019-06-28] MEDS: Aspirin 325 MG Tab.EC PO SCH (21:52)
[2019-06-28] MEDS: Melatonin 3 MG Tab PO SCH (21:52)
[2019-06-29] MEDS: Acetaminophen 325 MG Tab PO PRN (00:17)
[2019-06-29] MEDS: ceFAZolin 1 GM in Premix Bag 1 BAG IV SCH ×3 (00:22→12:10)
[2019-06-29] MEDS: Aspirin 325 MG Tab.EC PO SCH (08:52)
[2019-06-29] MEDS: Nozin Nasal Sanitizer NASBOTH SCH (08:53)
--- NOTE | 2019-06-29 09:12 | PCM.DCSUM1 ---
Discharge Summary - Hospital Course HPI Initial Comments: 79 yarelis old male with progressive pain in both knees admitted for bilateral total knee arthroplasties Diagnosis: Stroke: No - Discharge Data Discharge Date: 06/29/19 Discharge Disposition: DC/Tfer to SNF 03 Condition: Good - Discharge Diagnosis/Problem(s) (1) Status post total bilateral knee replacement SNOMED Code(s): 4702361925641, 7240723201343 ICD Code: Z96.653 - PRESENCE OF ARTIFICIAL KNEE JOINT, BILATERAL Status: Acute Current Visit: Yes - Patient Summary/Data Operative Procedure(s) Performed: Bilateral total knee arthroplasties Consults: Consultations 06/25/19 13:05 OT Evaluation and Treatment [CONS] Routine Please Evaluate and Treat. OT Reason for Consult: ADL's Pending Discharge: Yes [facility]charge Disposition: [facility] Special Instructions: ADLs nd adaptive devices This query below is only for informational purposes and is not editable. 06/25/19 13:06 Consult to Case Management/Pastoral Worker [CONS] Routine Comment: Physician Instructions: Service(s) to be Consulted: Case Management Reason for Consult: Plan for Discharge PT Evaluation and Treatment [CONS] Routine Please Evaluate and Treat. PT Reason for Consult: Post op Ortho Surgery Pending Discharge: Yes Discharge Disposition: [facility] This query below is only for informational purposes and is not editable. Hospital Course: Patient tolerated procedures without complication. Had difficulty with confusion post-op secondary to combination of medications including scopolamine patch and narcotics. Was not able to fully participate in PT/OT due to confusion. Patient was evaluated by Hospitalist and no other causes found. Mental status clear approx 24 hours after scopolamine patch removed. Moving much better and tolerating PT. No wound complications. WAs on Lovenox for DVT prophylaxis but platelets noted to be low and this was stopped. Plan Aspirin 325 mg BID. Follow up with Ortho in 2 weeks. - Patient Instructions Diet: Usual Diet as Tolerated Activity: Apply Ice, As Tolerated, Full Weight Bearing Showering/Bathing: May Shower Notify Provider of: Fever, Increased Pain, Swelling and Redness, Drainage Other/Special Instructions: Thigh high J LUIS hose - Discharge Plan *PRESCRIPTION DRUG MONITORING PROGRAM REVIEWED*: No *COPY OF PRESCRIPTION DRUG MONITORING REPORT IN PATIENT UTE: No Home Medications: Home Meds NK [No Known Home Meds] 07/15/19 [History] Oxygen Therapy Mode: Room Air - Discharge Summary/Plan Comment DC Time >30 min.: Yes Discharge Summary/Plan Comment: Discharge to SNF for continued PT and OT. ROM, weight bearing and strengthening as tolerated. Ultram for pain. ASA 325 mg BID for DVT prophylaxis. - Patient Data Vitals - Most Recent: Last Vital Signs Temp 36.4 C 06/29/19 07:10 Pulse 81 06/29/19 07:10 Resp 16 06/29/19 07:10 BP 114/57 L 06/29/19 07:10 Pulse Ox 94 L 06/29/19 07:10 Weight - Most Recent: 86.863 kg I&O - Last 24 hours: Intake & Output 06/28/19 06/29/19 06/29/19 22:59 06:59 14:59 Intake Total 700 1070 Output Total 600 Balance 100 1070 KAYLEY Results - Last 24 hrs: Microbiology 06/27/19 04:55 Aerobic Blood Culture - Preliminary Blood - Venous - Lab Draw NO GROWTH AFTER 1 DAY Anaerobic Blood Culture - Preliminary NO GROWTH AFTER 1 DAY 06/27/19 04:50 Aerobic Blood Culture - Preliminary Blood - Venous NO GROWTH AFTER 1 DAY Anaerobic Blood Culture - Preliminary NO GROWTH AFTER 1 DAY Med Orders - Current: Current Medications Acetaminophen (Tylenol) 650 mg PO Q4H PRN PRN Reason: Pain (mild 1-3) Last Admin: 06/29/19 00:17 Dose: 650 mg Hydrocodone Bitart/Acetaminophen (Secretary 325-5 Mg) 2 tab PO Q4H PRN PRN Reason: Pain (moderate 4-6) Aspirin (Ecotrin) 325 mg PO BID [facility] Last Admin: 06/29/19 08:52 Dose: 325 mg Bandage/Support Products ( Nasal Gastroenterology Nurse) 1 applic NASBOTH BID [facility] Last Admin: 06/29/19 08:53 Dose: 1 swab Bisacodyl (Dulcolax) 10 mg PO DAILY PRN PRN Reason: Constipation Last Admin: 06/28/19 11:34 Dose: 10 mg Docusate Sodium (Colace) 100 mg PO BID PRN PRN Reason: Constipation Last Admin: 06/28/19 17:10 Dose: 100 mg Haloperidol (Haldol) 1 mg PO Q4H PRN PRN Reason: Agitation Sodium Chloride (Normal Saline) 1,000 mls @ 100 mls/hr IV ASDIRECTED [facility] Last Admin: 06/28/19 05:18 Dose: 100 mls/hr Cefazolin Sodium/Dextrose 1 gm (/ Premix) 50 mls @ 100 mls/hr IV Q6H [facility] Last Admin: 06/29/19 05:08 Dose: 100 mls/hr Magnesium Hydroxide (Milk Of Magnesia) 30 ml PO BID PRN PRN Reason: Constipation Last Admin: 06/28/19 17:10 Dose: 30 ml Melatonin (Melatonin) 6 mg PO BEDTIME [facility] Last Admin: 06/28/19 21:52 Dose: 6 mg Morphine Sulfate (Morphine) 2 mg IVPUSH Q1H PRN PRN Reason: Breakthrough Pain Last Admin: 06/25/19 17:32 Dose: 2 mg Ondansetron HCl (Zofran) 4 mg IVPUSH Q6H PRN PRN Reason: Nausea/Vomiting Tramadol HCl (Ultram) 50 mg PO Q6H PRN PRN Reason: Pain (mild 1-3) Last Admin: 06/28/19 17:06 Dose: 50 mg Discontinued Medications Hydrocodone Bitart/Acetaminophen (Secretary 325-5 Mg) 1 tab PO Q3H PRN PRN Reason: Pain (mild 1-3) Last Admin: 06/26/19 08:29 Dose: 1 tab Enoxaparin Sodium (Lovenox) 30 mg SUBCUT DAILY [facility] Last Admin: 06/28/19 08:55 Dose: 30 mg Ephedrine Sulfate (Ephedrine Sulfate) Confirm Administered Dose 50 mg .ROUTE .STK-MED ONE Stop: 06/25/19 12:01 Fentanyl (Sublimaze) Confirm Administered Dose 100 mcg .ROUTE .STK-MED ONE Stop: 06/25/19 07:13 Fentanyl (Sublimaze) 50 mcg IVPUSH ONETIME ONE Stop: 06/25/19 13:57 Last Admin: 06/25/19 14:07 Dose: 50 mcg Fentanyl (Sublimaze) 50 mcg IVPUSH ONETIME ONE Stop: 06/25/19 14:11 Last Admin: 06/25/19 14:58 Dose: Not Given Gabapentin (Neurontin) 300 mg PO ONETIME ONE Stop: 06/25/19 07:16 Last Admin: 06/25/19 07:33 Dose: 300 mg Hydroxyzine HCl (Vistaril) 100 mg IM ONETIME ONE Stop: 06/25/19 13:51 Last Admin: 06/25/19 13:55 Dose: 100 mg Lactated Ringer's (Ringers, Lactated) 1,000 mls @ 75 mls/hr IV ASDIRECTED [facility] Last Admin: 06/25/19 08:09 Dose: 75 mls/hr Cefazolin Sodium 2 gm/ Sodium (Chloride) 50 mls @ 100 mls/hr IV ONETIME ONE Stop: 06/25/19 08:59 Last Admin: 06/25/19 15:00 Dose: Not Given Tranexamic Acid 880 mg/ Sodium (Chloride) 58.8 mls @ 235.2 mls/hr IV ONETIME ONE Stop: 06/25/19 08:59 Last Admin: 06/25/19 10:53 Dose: 235.2 mls/hr Lactated Ringer's (Ringers, Lactated) Confirm Administered Dose 1,000 mls @ as directed .ROUTE .STK-MED ONE Stop: 06/25/19 11:21 Cefazolin Sodium/Dextrose 1 gm (/ Premix) 50 mls @ 100 mls/hr IV Q8H [facility] Stop: 06/26/19 10:29 Last Admin: 06/26/19 10:23 Dose: 100 mls/hr Sodium Chloride (Normal Saline) 1,000 mls @ 125 mls/hr IV ASDIRECTED [facility] Stop: 06/27/19 14:00 Last Admin: 06/27/19 09:16 Dose: 125 mls/hr Sodium Chloride (Normal Saline) 500 mls @ 500 mls/hr IV .BOLUS ONE Stop: 06/27/19 23:38 Last Admin: 06/27/19 23:06 Dose: 500 mls/hr Cefazolin Sodium 1 gm/ Sodium (Chloride) 50 mls @ 100 mls/hr IV Q6H [facility] Last Admin: 06/28/19 05:18 Dose: 100 mls/hr Melatonin (Melatonin) 6 mg PO BEDTIME [facility] Midazolam HCl (Versed 1 Mg/Ml) Confirm Administered Dose 2 mg .ROUTE .STK-MED ONE Stop: 06/25/19 07:13 Oxycodone/Acetaminophen (Percocet 325-5 Mg) 2 tab PO Q4H PRN PRN Reason: Pain Last Admin: 06/27/19 09:16 Dose: 2 tab Povidone Iodine (Betadine 10% Soln) Confirm Administered Dose 1 ml .ROUTE .STK- MED ONE Stop: 06/25/19 07:05 Last Admin: 06/25/19 10:58 Dose: 1 ml Propofol (Diprivan 20 Ml) Confirm Administered Dose 200 mg .ROUTE .STK-MED ONE Stop: 06/25/19 07:13 Propofol (Diprivan 20 Ml) Confirm Administered Dose 200 mg .ROUTE .STK-MED ONE Stop: 06/25/19 11:31 Scopolamine (Transderm-Scop) 1.5 mg TOP ONETIME ONE Stop: 06/25/19 07:16 Last Admin: 06/25/19 07:34 Dose: 1.5 mg
[2019-06-29 10:43] VITALS: BP 116/62; PULSE 66
--- NOTE | 2019-07-27 13:58 | PCM.SURGPN ---
- General Info Date of Service: 06/28/19 POD#: 3 Functional Status: Reports: Pain Controlled, Tolerating Diet, Ambulating, Urinating - Review of Systems General: Reports: No Symptoms HEENT: Reports: No Symptoms Pulmonary: Reports: No Symptoms Cardiovascular: Reports: No Symptoms Gastrointestinal: Reports: No Symptoms Genitourinary: Reports: No Symptoms Musculoskeletal: Reports: Leg Pain Neurological: Reports: Other (confusion much improved) Psychiatric: Reports: No Symptoms - Patient Data Vitals - Most Recent: Last Vital Signs Temp 36.6 C 06/29/19 10:41 Pulse 66 06/29/19 10:41 Resp 18 06/29/19 10:41 BP 116/62 06/29/19 10:41 Pulse Ox 93 L 06/29/19 10:41 Weight - Most Recent: 86.863 kg Med Orders - Current: Current Medications Discontinued Medications Acetaminophen (Tylenol) 650 mg PO Q4H PRN PRN Reason: Pain (mild 1-3) Last Admin: 06/29/19 00:17 Dose: 650 mg Hydrocodone Bitart/Acetaminophen (Eagle 325-5 Mg) 1 tab PO Q3H PRN PRN Reason: Pain (mild 1-3) Last Admin: 06/26/19 08:29 Dose: 1 tab Hydrocodone Bitart/Acetaminophen (Eagle 325-5 Mg) 2 tab PO Q4H PRN PRN Reason: Pain (moderate 4-6) Aspirin (Ecotrin) 325 mg PO BID [facility] Last Admin: 06/29/19 08:52 Dose: 325 mg Bandage/Support Products ( Nasal Pattern Lease Inspector) 1 applic NASBOTH BID [facility] Last Admin: 06/29/19 08:53 Dose: 1 swab Bisacodyl (Dulcolax) 10 mg PO DAILY PRN PRN Reason: Constipation Last Admin: 06/28/19 11:34 Dose: 10 mg Docusate Sodium (Colace) 100 mg PO BID PRN PRN Reason: Constipation Last Admin: 06/28/19 17:10 Dose: 100 mg Enoxaparin Sodium (Lovenox) 30 mg SUBCUT DAILY [facility] Last Admin: 06/28/19 08:55 Dose: 30 mg Ephedrine Sulfate (Ephedrine Sulfate) Confirm Administered Dose 50 mg .ROUTE .STK-MED ONE Stop: 06/25/19 12:01 Fentanyl (Sublimaze) Confirm Administered Dose 100 mcg .ROUTE .STK-MED ONE Stop: 06/25/19 07:13 Fentanyl (Sublimaze) 50 mcg IVPUSH ONETIME ONE Stop: 06/25/19 13:57 Last Admin: 06/25/19 14:07 Dose: 50 mcg Fentanyl (Sublimaze) 50 mcg IVPUSH ONETIME ONE Stop: 06/25/19 14:11 Last Admin: 06/25/19 14:58 Dose: Not Given Gabapentin (Neurontin) 300 mg PO ONETIME ONE Stop: 06/25/19 07:16 Last Admin: 06/25/19 07:33 Dose: 300 mg Haloperidol (Haldol) 1 mg PO Q4H PRN PRN Reason: Agitation Hydroxyzine HCl (Vistaril) 100 mg IM ONETIME ONE Stop: 06/25/19 13:51 Last Admin: 06/25/19 13:55 Dose: 100 mg Lactated Ringer's (Ringers, Lactated) 1,000 mls @ 75 mls/hr IV ASDIRECTED [facility] Last Admin: 06/25/19 08:09 Dose: 75 mls/hr Cefazolin Sodium 2 gm/ Sodium (Chloride) 50 mls @ 100 mls/hr IV ONETIME ONE Stop: 06/25/19 08:59 Last Admin: 06/25/19 15:00 Dose: Not Given Tranexamic Acid 880 mg/ Sodium (Chloride) 58.8 mls @ 235.2 mls/hr IV ONETIME ONE Stop: 06/25/19 08:59 Last Admin: 06/25/19 10:53 Dose: 235.2 mls/hr Lactated Ringer's (Ringers, Lactated) Confirm Administered Dose 1,000 mls @ as directed .ROUTE .STK-MED ONE Stop: 06/25/19 11:21 Cefazolin Sodium/Dextrose 1 gm (/ Premix) 50 mls @ 100 mls/hr IV Q8H [facility] Stop: 06/26/19 10:29 Last Admin: 06/26/19 10:23 Dose: 100 mls/hr Sodium Chloride (Normal Saline) 1,000 mls @ 125 mls/hr IV ASDIRECTED [facility] Stop: 06/27/19 14:00 Last Admin: 06/27/19 09:16 Dose: 125 mls/hr Sodium Chloride (Normal Saline) 1,000 mls @ 100 mls/hr IV ASDIRECTED [facility] Last Admin: 06/28/19 05:18 Dose: 100 mls/hr Sodium Chloride (Normal Saline) 500 mls @ 500 mls/hr IV .BOLUS ONE Stop: 06/27/19 23:38 Last Admin: 06/27/19 23:06 Dose: 500 mls/hr Cefazolin Sodium 1 gm/ Sodium (Chloride) 50 mls @ 100 mls/hr IV Q6H [facility] Last Admin: 06/28/19 05:18 Dose: 100 mls/hr Cefazolin Sodium/Dextrose 1 gm (/ Premix) 50 mls @ 100 mls/hr IV Q6H [facility] Last Admin: 06/29/19 12:10 Dose: 100 mls/hr Magnesium Hydroxide (Milk Of Magnesia) 30 ml PO BID PRN PRN Reason: Constipation Last Admin: 06/28/19 17:10 Dose: 30 ml Melatonin (Melatonin) 6 mg PO BEDTIME [place] Melatonin (Melatonin) 6 mg PO BEDTIME [facility] Last Admin: 06/28/19 21:52 Dose: 6 mg Midazolam HCl (Versed 1 Mg/Ml) Confirm Administered Dose 2 mg .ROUTE .STK-MED ONE Stop: 06/25/19 07:13 Morphine Sulfate (Morphine) 2 mg IVPUSH Q1H PRN PRN Reason: Breakthrough Pain Last Admin: 06/25/19 17:32 Dose: 2 mg Ondansetron HCl (Zofran) 4 mg IVPUSH Q6H PRN PRN Reason: Nausea/Vomiting Oxycodone/Acetaminophen (Percocet 325-5 Mg) 2 tab PO Q4H PRN PRN Reason: Pain Last Admin: 06/27/19 09:16 Dose: 2 tab Povidone Iodine (Betadine 10% Soln) Confirm Administered Dose 1 ml .ROUTE .STK- MED ONE Stop: 06/25/19 07:05 Last Admin: 06/25/19 10:58 Dose: 1 ml Propofol (Diprivan 20 Ml) Confirm Administered Dose 200 mg .ROUTE .STK-MED ONE Stop: 06/25/19 07:13 Propofol (Diprivan 20 Ml) Confirm Administered Dose 200 mg .ROUTE .STK-MED ONE Stop: 06/25/19 11:31 Scopolamine (Transderm-Scop) 1.5 mg TOP ONETIME ONE Stop: 06/25/19 07:16 Last Admin: 06/25/19 07:34 Dose: 1.5 mg Tramadol HCl (Ultram) 50 mg PO Q6H PRN PRN Reason: Pain (mild 1-3) Last Admin: 06/28/19 17:06 Dose: 50 mg - Exam Wound/Incisions: Healing Well General: Other (Mental status improved) HEENT: Pupils Equal Neck: Supple Lungs: Clear to Auscultation, Normal Respiratory Effort Cardiovascular: Regular Rate, Regular Rhythm GI/Abdominal Exam: Normal Bowel Sounds, Soft, Non-Tender, No Organomegaly, No Distention, No Abnormal Bruit, No Mass, Pelvis Stable Skin: Warm, Dry, Intact Neurological: No New Focal Deficit - Problem List & Annotations (1) Status post total bilateral knee replacement SNOMED Code(s): 8190847432740, 4043620667152 Code(s): Z96.653 - PRESENCE OF ARTIFICIAL KNEE JOINT, BILATERAL Status: Acute (2) Delirium SNOMED Code(s): 3803800 Code(s): R41.0 - DISORIENTATION, UNSPECIFIED Status: Acute Annotation/ Comment:: Secondary to multiple medications - Problem List Review Problem List Initiated/Reviewed/Updated: Yes - Assessment Assessment (Free Text/Narrative):: Mental status clearing and almost back to baseline. Appreciate Hospitalist evaluation and input. - Plan Plan (Free Text/Narrative):: No new problems or concerns. Making arrangements for discharge to SNF.
== END 2019-06-29 14:30 | DRG 462 ==
LOC: JP.SDSSCHI 06:57 → JP.SDS 06:57 → EDSTATUS 08:30 → JP.MS 14:40
PROVIDERS: ADMIT Specialist; ATTEND Specialist
PROC: 0SRD069 Replacement of Left Knee Joint with Oxidized Zirconium on Polyethylene Synthetic Substitute, Cemented, Open Approach (ICD-10-PCS; principal; 2019-06-25)
PROC: 0SRC069 Replacement of Right Knee Joint with Oxidized Zirconium on Polyethylene Synthetic Substitute, Cemented, Open Approach (ICD-10-PCS; 2019-06-25)
DX: M17.0 Bilateral primary osteoarthritis of knee (principal); R41.0 Disorientation, unspecified; T44.3X5A Adverse effect of other parasympatholytics [anticholinergics and antimuscarinics] and spasmolytics, initial encounter; T40.605A Adverse effect of unspecified narcotics, initial encounter; Y92.239 Unspecified place in hospital as the place of occurrence of the external cause; E86.0 Dehydration; Z96.641 Presence of right artificial hip joint; Z96.661 Presence of right artificial ankle joint; Z88.8 Allergy status to other drugs, medicaments and biological substances
CPT/HCPCS: 36415; 735602650; 73560-50; 80048; 81001; 85025; 85027; 86850; 86900; 86901; 87040; 97110-GP; 97116-GP; 97162-GP; 97165-GO; 97530-GP; 99024; A9270-GY; C1713; C1776; J0690; J1650; J2250; J2270; J2704; J3010; J3410; J7030; J7040; J7050; J7120

== ENCOUNTER 2020-07-14 12:11 | Emergency (ER) | payer MEDICARE ==
[2020-07-14] MEDS ORDERED: LORazepam 0.5 MG Tab PO ONE (13:11)
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
[2020-07-14] MEDS ORDERED: Lactated Ringers 1,000 ML IV ONE (15:06)
[2020-07-14] MEDS: Sodium Chloride 0.9% 10 ML Syringe FLUSH ONE ×2 (15:36→17:29)
[2020-07-14] MEDS: Sodium Chloride 0.9% 100 ML IV SCH ×2 (15:54→17:28)
[2020-07-14] MEDS: Iopamidol 755 Mg/ML 100 ML Bottle IV SCH ×2 (16:16→17:28)
--- NOTE | 2020-07-14 16:21 | CRLCT ---
INDICATION: TECHNIQUE: Scanning of the head was performed without IV contrast material. Coronal reconstructions were obtained. COMPARISON: None. FINDINGS: No intracranial hemorrhage is demonstrated. No positive mass effect is evident. Differentiation between the urena matter and white matter is preserved. There is mild, nonspecific decreased attenuation in the cerebral white matter which is most likely due to aging/chronic microvascular ischemic disease. The ventricles and other subarachnoid spaces are within normal limits for the patient`s age. No calvarial abnormality is evident. The visualized paranasal and mastoid sinuses are clear. IMPRESSION: 1. No acute abnormality demonstrated. 2. Mild, nonspecific cerebral white matter disease, most likely due to aging/chronic microvascular ischemic disease. Please note that all CT scans at this facility use dose modulation, iterative reconstruction, and/or weight-based dosing when appropriate to reduce radiation dose to as low as reasonably achievable. Dictated by Johnnie Li MD @ Jul 14 2020 4:16PM Signed by Dr. Johnnie Li @ Jul 14 2020 4:18PM
[2020-07-14 17:35] VITALS: BP 130/68; PULSE 42
[2020-07-14] MEDS ORDERED: Clopidogrel 75 MG Tab PO ONE (19:01)
--- NOTE | 2020-07-15 08:12 | CRLCT ---
Final Report: INDICATION: Left arm weakness. TECHNIQUE: High-resolution axial CT images were acquired through the head and neck following the rapid intravenous administration of iodinated contrast. Multiplanar MIPS of the cranial and cervical vasculature were performed as well. FINDINGS: There is an occlusion or near occlusion of the very distal right vertebral artery, which is quite small, just before the vertebrobasilar junction. There is otherwise no obvious large vessel occlusion given the limitations of the examination with artifact and suboptimal timing of the contrast bolus. In the neck, there is no significant carotid or vertebral stenosis or dissection. IMPRESSION: 1. Small right vertebral artery with an occlusion or near occlusion just proximal to the basilar junction. Otherwise no large vessel occlusion given the limitations of the examination with artifact and suboptimal timing of the contrast bolus. 2. No significant carotid or vertebral artery stenosis or dissection. Please note that all CT scans at this facility use dose modulation, iterative reconstruction, and/or weight-based dosing when appropriate to reduce radiation dose to as low as reasonably achievable. Dictated by Jude Mistry MD @ Jul 14 2020 7:18PM Signed by: Jude Mistry MD @07/14/2020 7:37:44 PM (Electronic Signature) [facility]
--- NOTE | 2020-07-15 08:13 | CRLCT ---
Final Report: INDICATION: Left arm weakness. TECHNIQUE: High-resolution axial CT images were acquired through the head and neck following the rapid intravenous administration of iodinated contrast. Multiplanar MIPS of the cranial and cervical vasculature were performed as well. FINDINGS: There is an occlusion or near occlusion of the very distal right vertebral artery, which is quite small, just before the vertebrobasilar junction. There is otherwise no obvious large vessel occlusion given the limitations of the examination with artifact and suboptimal timing of the contrast bolus. In the neck, there is no significant carotid or vertebral stenosis or dissection. IMPRESSION: 1. Small right vertebral artery with an occlusion or near occlusion just proximal to the basilar junction. Otherwise no large vessel occlusion given the limitations of the examination with artifact and suboptimal timing of the contrast bolus. 2. Carotid atherosclerotic disease without significant stenosis. No significant cervical carotid or vertebral artery stenosis or dissection. Please note that all CT scans at this facility use dose modulation, iterative reconstruction, and/or weight-based dosing when appropriate to reduce radiation dose to as low as reasonably achievable. Dictated by Jude Mistry MD @ Jul 14 2020 7:18PM Signed by: Jude Mistry MD @07/14/2020 7:38:46 PM (Electronic Signature) [facility]
== END 2020-07-14 19:25 | disposition home or self-care (01) ==
LOC: JP.ED 12:11
DX: R20.2 Paresthesia of skin (principal); R93.0 Abnormal findings on diagnostic imaging of skull and head, not elsewhere classified; Z88.6 Allergy status to analgesic agent
CPT/HCPCS: 36415; 70450; 70496; 70498; 80048; 85027; 93005; 96360; 99285; A9270; J7050; J7120; Q9967; 93010; 99283

== ENCOUNTER 2021-10-06 10:45 | Emergency (ER) | payer MEDICARE ==
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
[2021-10-06] MEDS ORDERED: Sodium Chloride 0.9% 10 ML Syringe FLUSH PRN (11:06)
[2021-10-06] MEDS ORDERED: Magnesium Oxide 400 MG Tab PO ONE (12:09)
[2021-10-06] MEDS ORDERED: Metoprolol Tartrate 25 MG Tab PO ONE (12:42)
[2021-10-06 13:02] VITALS: BP 109/65; PULSE 80
== END 2021-10-06 13:21 | disposition home or self-care (01) ==
LOC: JP.ED 10:45
DX: I48.0 Paroxysmal atrial fibrillation (principal); E83.42 Hypomagnesemia; I45.10 Unspecified right bundle-branch block; Z88.6 Allergy status to analgesic agent; Z88.5 Allergy status to narcotic agent; Z79.82 Long term (current) use of aspirin; Z79.899 Other long term (current) drug therapy
CPT/HCPCS: 36415; 80048; 83735; 84484; 85027; 93005; 93225; 93226; 99285; A9270

== ENCOUNTER 2022-03-22 10:50 | Emergency (ER) | payer MEDICARE ==
[2022-03-22] MEDS ORDERED: Sodium Chloride 0.9% 10 ML Syringe FLUSH PRN (11:25)
[2022-03-22] MEDS ORDERED: Sodium Chloride 0.9% 1,000 ML IV SCH (11:30)
[2022-03-22] MEDS ORDERED: Sodium Chloride 0.9% 75 ML IV ONE (11:45)
[2022-03-22] MEDS ORDERED: Iopamidol 755 Mg/ML 100 ML Bottle IV SCH (11:45)
[2022-03-22 12:12] LABS: TROPONIN I HIGH SENSITIVITY 40.2 pg/mL (<=60.3)
[2022-03-22 15:02] VITALS: BP 123/51; PULSE 62
== END 2022-03-22 15:09 ==
LOC: JP.ED 10:50
DX: I63.311 Cerebral infarction due to thrombosis of right middle cerebral artery (principal); E78.00 Pure hypercholesterolemia, unspecified; I10 Essential (primary) hypertension; I25.10 Atherosclerotic heart disease of native coronary artery without angina pectoris; Z79.899 Other long term (current) drug therapy; Z79.82 Long term (current) use of aspirin
CPT/HCPCS: 36415; 70450; 70496; 70498; 80053; 83605; 84484; 85025; 93005; 99285; J3490; J7030; Q9967; 93010; 99284

== ENCOUNTER 2024-05-16 23:31 | Emergency (ER) | payer MEDICARE ==
[2024-05-17] MEDS ORDERED: Naloxone 0.4 MG/ML SDV IVPUSH PRN (00:12)
[2024-05-17] MEDS: HYDROmorphone 0.5 MG/0.5 ML Syringe IM ONE (00:26)
[2024-05-17 02:04] VITALS: BP 95/47; PULSE 78
== END 2024-05-17 02:00 | disposition home or self-care (01) ==
LOC: JP.ED 23:31
DX: S52.91XA Unspecified fracture of right forearm, initial encounter for closed fracture (principal); I10 Essential (primary) hypertension; I25.10 Atherosclerotic heart disease of native coronary artery without angina pectoris; E78.00 Pure hypercholesterolemia, unspecified; Z88.8 Allergy status to other drugs, medicaments and biological substances; Z79.82 Long term (current) use of aspirin; Z79.01 Long term (current) use of anticoagulants; Z79.899 Other long term (current) drug therapy; Z86.16 Personal history of COVID-19; Z90.49 Acquired absence of other specified parts of digestive tract; W19.XXXA Unspecified fall, initial encounter
CPT/HCPCS: 73080-26-RT; 73080-RT; 96372; 99283; J1170

== ENCOUNTER 2025-06-10 13:27 | Emergency (ER) | payer MEDICARE ==
[2025-06-10] MEDS ORDERED: Sodium Chloride 0.9% 10 ML Syringe FLUSH PRN ×2 (14:41→14:55)
[2025-06-10] MEDS ORDERED: Nitroglycerin 0.4 MG Tab.SL SL PRN (14:41)
[2025-06-10 15:13] LABS: BASOPHILS ABSOLUTE AUTO 0.04 K/uL (0.00-0.10); BASOPHILS PERCENT AUTO 0.6 % (0.1-1.3); EOSINOPHILS ABSOLUTE AUTO 0.28 K/uL (0.00-0.40); EOSINOPHILS PERCENT AUTO 3.9 % (0.0-5.4); IMMATURE GRAN ABSOLUTE AUTO 0.02 K/uL (0.00-0.23); IMMATURE GRAN PERCENT AUTO 0.3 % (0.0-0.7); LYMPHOCYTES ABSOLUTE AUTO 1.59 K/uL (0.8-3.3); LYMPHOCYTES PERCENT AUTO 22.4 % (11.4-47.7); MONOCYTES ABSOLUTE AUTO 1.03 K/uL (0.20-0.90); MONOCYTES PERCENT AUTO 14.5 % (3.3-12.6); NEUTROPHILS ABSOLUTE AUTO 4.15 K/uL (1.0-7.6); NEUTROPHILS PERCENT AUTO 58.3 % (40.0-78.1); PLATELET COUNT,PLT 160 K/uL (130-375); RED BLOOD CELL COUNT 3.41 M/uL (4.14-5.76); WHITE BLOOD CELL COUNT,WBC 7.1 K/uL (3.2-11.0)
[2025-06-10 15:43] LABS: A/G RATIO 0.8 (1.2-2.2); ALANINE AMINOTRANSFERASE,ALT 31 U/L (12-78); ASPARTATE AMNIOTRANSFERASE,AST 38 U/L (15-37); BILIRUBIN TOTAL 1.7 mg/dL (0.2-1.0); BLOOD UREA NITROGEN,BUN 26 mg/dL (7-18); CARBON DIOXIDE,CO2 30 mmol/L (21-32); CHLORIDE,CL 101 mmol/L (100-108); CREATININE 1.8 mg/dL (0.8-1.3); EST CRCL DRUG DOSING (CG) 28.05 mL/min; ESTIMATED GFR 36 mL/min (>60); GLUCOSE RANDOM 113 mg/dL (74-106); POTASSIUM,K 3.5 mmol/L (3.6-5.2); PRO B-TYPE NATRIUR PEPT,BNPPRO 1394 pg/mL (5-450); PROTEIN TOTAL,TP 6.4 g/dL (6.4-8.2); SODIUM,NA 140 mmol/L (140-148)
[2025-06-10 15:47] VITALS: BP 91/56; PULSE 97
[2025-06-10] MEDS: Furosemide 40 MG/4 ML VIAL IVPUSH ONE (16:04)
== END 2025-06-10 18:14 | disposition home or self-care (01) ==
LOC: JP.ED 13:27
DX: I11.0 Hypertensive heart disease with heart failure (principal); I50.9 Heart failure, unspecified; Z79.01 Long term (current) use of anticoagulants; I25.10 Atherosclerotic heart disease of native coronary artery without angina pectoris; E78.00 Pure hypercholesterolemia, unspecified; Z90.49 Acquired absence of other specified parts of digestive tract; Z88.5 Allergy status to narcotic agent; Z88.8 Allergy status to other drugs, medicaments and biological substances; Z79.82 Long term (current) use of aspirin; Z79.899 Other long term (current) drug therapy
CPT/HCPCS: 36415; 71045; 80053; 83880; 84484; 85025; 93005; 96374; 99285; J1938; J7040

== ENCOUNTER 2025-06-13 15:53 | Emergency (ER) | payer MEDICARE ==
[2025-06-13 17:03] LABS: BASOPHILS ABSOLUTE AUTO 0.05 K/uL (0.00-0.10); BASOPHILS PERCENT AUTO 0.6 % (0.1-1.3); EOSINOPHILS ABSOLUTE AUTO 0.20 K/uL (0.00-0.40); EOSINOPHILS PERCENT AUTO 2.4 % (0.0-5.4); IMMATURE GRAN ABSOLUTE AUTO 0.04 K/uL (0.00-0.23); IMMATURE GRAN PERCENT AUTO 0.5 % (0.0-0.7); LYMPHOCYTES ABSOLUTE AUTO 1.31 K/uL (0.8-3.3); LYMPHOCYTES PERCENT AUTO 15.6 % (11.4-47.7); MONOCYTES ABSOLUTE AUTO 1.08 K/uL (0.20-0.90); MONOCYTES PERCENT AUTO 12.8 % (3.3-12.6); NEUTROPHILS ABSOLUTE AUTO 5.74 K/uL (1.0-7.6); NEUTROPHILS PERCENT AUTO 68.1 % (40.0-78.1); PLATELET COUNT,PLT 161 K/uL (130-375); RED BLOOD CELL COUNT 3.35 M/uL (4.14-5.76); WHITE BLOOD CELL COUNT,WBC 8.4 K/uL (3.2-11.0)
[2025-06-13 17:23] LABS: A/G RATIO 0.8 (1.2-2.2); ALANINE AMINOTRANSFERASE,ALT 28 U/L (12-78); ASPARTATE AMNIOTRANSFERASE,AST 37 U/L (15-37); BILIRUBIN TOTAL 2.1 mg/dL (0.2-1.0); BLOOD UREA NITROGEN,BUN 24 mg/dL (7-18); CARBON DIOXIDE,CO2 31 mmol/L (21-32); CHLORIDE,CL 99 mmol/L (100-108); CREATININE 1.6 mg/dL (0.8-1.3); EST CRCL DRUG DOSING (CG) 32.66 mL/min; ESTIMATED GFR 42 mL/min (>60); GLUCOSE RANDOM 116 mg/dL (74-106); POTASSIUM,K 3.2 mmol/L (3.6-5.2); PROTEIN TOTAL,TP 6.5 g/dL (6.4-8.2); SODIUM,NA 137 mmol/L (140-148)
[2025-06-13 17:34] LABS: INR 7.4
[2025-06-13 20:05] LABS: APPEARANCE,URINE SLIGHTLY CLOUDY (CLEAR); GLUCOSE,URINE NEGATIVE (NEGATIVE); OCCULT BLOOD,URINE NEGATIVE (NEGATIVE)
[2025-06-13 20:16] LABS: SQUAMOUS EPITHELIAL CELLS,UR FEW /HPF
[2025-06-13 21:56] VITALS: BP 94/60; PULSE 89
== END 2025-06-13 22:31 ==
LOC: JP.ED 15:53
DX: S22.42XA Multiple fractures of ribs, left side, initial encounter for closed fracture (principal); S00.81XA Abrasion of other part of head, initial encounter; I10 Essential (primary) hypertension; I25.10 Atherosclerotic heart disease of native coronary artery without angina pectoris; E78.00 Pure hypercholesterolemia, unspecified; Z79.82 Long term (current) use of aspirin; Z79.899 Other long term (current) drug therapy; Z79.01 Long term (current) use of anticoagulants; Z88.8 Allergy status to other drugs, medicaments and biological substances; Z88.1 Allergy status to other antibiotic agents; Z88.5 Allergy status to narcotic agent; Z88.6 Allergy status to analgesic agent; W01.198A Fall on same level from slipping, tripping and stumbling with subsequent striking against other object, initial encounter; Y92.009 Unspecified place in unspecified non-institutional (private) residence as the place of occurrence of the external cause
CPT/HCPCS: 36415; 70450; 71250; 72125; 73090-LT; 73100-LT; 76377; 80053; 81001; 85025; 85610; 96374; 96375; 99285; 99285-25; J1171; J3430; J7030